=== PATIENT | female | born 1955 | race Caucasian/White ===

== ENCOUNTER 2016-11-06 21:02 | Inpatient (IN) | payer MEDICARE ==
[2016-11-06] MEDS ORDERED: BABY ASPIRIN 81 MG CHEW PO ONE (21:14)
[2016-11-06] MEDS ORDERED: Nitrostat 0.4 MG (ED) SL ONE ×2 (21:14→21:24)
[2016-11-06] MEDS ORDERED: Sodium Chloride 0.9% 1000 ML 1,000 ML IV SCH (21:15)
[2016-11-06] MEDS ORDERED: Zithromax 500 MG/ 250 ML NaCl Premix 250 ML IV ONE ×2 (21:16→21:24)
[2016-11-06] MEDS ORDERED: PROVENTIL 2.5 MG/3 ML NEB IH ONE ×2 (21:16→21:26)
[2016-11-06] MEDS ORDERED: ROCEPHIN 1 Gm-D5w 50 ml Bag** 50 ML IV ONE ×2 (21:16→21:25)
--- NOTE | 2016-11-06 21:23 | ERPHSYRPT ---
- History of Present Illness Time Seen by Provider: 11/06/16 21:08 Source: patient Exam Limitations: no limitations Patient Subjective Stated Complaint: PT COMPLAINS OF BILATERAL RIB PAIN STATES THAT SHE HAS ARTHRITIS AND HAS A HARD TIME BREATHING DUE TO THE PAIN SHE HAS WHEN SHE TAKES A DEEP BREATH STATES STARTED YESTERDAY STATES THAT SHE HAS HAD A COUGH BUT STATES THAT IS NORMAL FOR HER PT DENIES ANY TRAUMA TO RIBS TO CAUSE THE PAIN Triage Nursing Assessment: PT ALERT WARM AND DRY RESP EASY NON LABORED NO DISTRESS NOTED PT APPEARS TO BE IN PAIN WITH ANY MOVEMENT. Physician History: FOR THE PAST 3 DAYS PT HAS HAD A COUGH PRODUCTIVE OF YELLOW PHLEGM; FOR THE PAST 2 DAYS SHORTNESS OF AIR AND CONSTANT "HARD" BILATERAL RIB PAIN; TODAY VOMITING X3. LAST BM WAS THIS AM & WNL. PT DENIES FEVER, RASH, HEADACHE. Allergies/Adverse Reactions: Influenza Virus Vaccines Adverse Reaction (Intermediate, Verified 05/19/16 14:46 ) Vomiting Home Medications: Lisinopril 5 mg [Zestril 5 MG] 5 mg PO BID 02/03/16 [History] Tiotropium [place] [Spiriva] 18 mcg IH DAILY 02/03/16 [History] Clopidogrel Bisulfate [Plavix] 75 mg PO 11/06/16 [History] Diazepam 5 mg PO 11/06/16 [History] Escitalopram Oxalate [Lexapro] 11/06/16 [History] Meloxicam 15 mg [Meloxicam 15 MG] 15 mg PO 11/06/16 [History] Hx Tetanus, Diphtheria Vaccination/Date Given: Yes Hx Influenza Vaccination/Date Given: No Hx Pneumococcal Vaccination/Date Given: Yes Immunizations Up to Date: Yes - Review of Systems Constitutional: No Fever Respiratory: Cough, Dyspnea Cardiac: Other (BILATERAL RIB PAIN) Abdominal/Gastrointestinal: Vomiting Skin: No Rash Neurological: No Headache All Other Systems: Reviewed and Negative - Past Medical History Pertinent Past Medical History: Yes Cardiac History: Hypertension Respiratory History: COPD Musculoskeletal History: Arthritis Psycho-Social History: Depression - Past Surgical History Past Surgical History: Yes Cardiac: Cardiac Catheterization, Cardiac Stent Gastrointestinal: Appendectomy Female Surgical History: Section, Hysterectomy - Social History Smoking Status: Current some day smoker How long have you smoked: 25 YEARS Exposure to second hand smoke: Yes Alcohol Use: None Drug Use: none Patient Lives Alone: No Significant Family History: no pertinent family hx - Female History Hx Last Menstrual Period: N/A Hx Now: No - Nursing Vital Signs Nursing Vital Signs: Initial Vital Signs Temperature 97.3 F Temperature Source Oral Pulse Rate 83 Respiratory Rate 19 Blood Pressure [] 138/95 Pain Intensity 0 - Physical Exam General Appearance: alert Eye Exam: PERRL/EOMI, eyes nml inspection Ears, Nose, Throat Exam: TMs normal, moist mucous membranes, pharyngeal erythema (MILD) Neck Exam: normal inspection Respiratory Exam: chest tenderness (BILATERAL RIB TENDERNESS WITHOUT CREPITUS), airway intact, diminished breath sounds, wheezing (MINIMAL EXPIRATORY WHEEZING OVER POSTERIOR BASES.) Cardiovascular Exam: normal heart sounds Gastrointestinal/Abdomen Exam: soft, normal bowel sounds Back Exam: normal range of motion Extremity Exam: normal inspection, No pedal edema Neurologic Exam: alert, cooperative Skin Exam: warm, dry SpO2 Interpretation: normal SpO2: 96 Oxygen Delivery: Room Air - Course Nursing assessment & vital signs reviewed: Yes EKG Interpreted by Me: RATE (80), Sinus Rhythm, NORMAL AXIS, NORMAL INTERVALS - CT Exams Chest CT Interpretation: Tele-radiologist Report (THERE IS A SMALL AMOUNT OF FREE INTRAPERITONEAL FLUID PRESENT. 1.3 CM RIGHT MIDDLE LOBE PULMONARY NODULE. THIS HAS INCREASED IN SIZE SINCE 04/23/16. MALIDNANCY SHOULD BE EXCLUDED. DILATED SMALL BOWEL IN THE LEFT UPPER ABDOMEN. CLINICAL CORRELATION IS RECOMMENDED TO WHETHER THE PATIENT MIGHT BENEFIT FROM ABDOMEN AND PELVIS CT. NO PULMONARY EMBOLISM. NO ACUTE FRACTURE.) Abdomen/Pelvis CT Interpretation: Tele-radiologist Report (SCATTERED ASCITES. MODERATELY DILATED SMALL BOWEL LEFT UPPER QUADRANT WITHOUT GENERALIZED OBSTRUCTION. FINDINGS ARE NONSPECIFIC. NO FREE AIR.) Ordered Tests: Active Orders 24 hr Category Date Time Status EKG-ER Only STAT Care 11/06/16 21:14 Active IV Insertion STAT Care 11/06/16 21:14 Active Oxygen-ED Only NASAL CANNULA 2 lpm Care 11/06/16 21:14 Active Pulse Oximetry (ED) STAT Care 11/06/16 21:14 Active ABDOMEN AND PELVIS W/0 CONTRAS [CT] Stat Exams 11/07/16 01:44 Taken CHEST WITH CONTRAST [CT] Stat Exams 11/06/16 22:28 Taken AMYLASE Stat Lab 11/06/16 21:41 Completed BLOOD CULTURE Stat Lab 11/06/16 21:41 Received CBC W DIFF Stat Lab 11/06/16 21:41 Completed CMP Stat Lab 11/06/16 21:41 Completed CULTURE, THROAT Stat Lab 11/06/16 21:41 Received CULTURE,SPUTUM Stat Lab 11/06/16 21:17 Uncollected D-DIMER QUANTITATION Stat Lab 11/06/16 21:41 Completed LIPASE Stat Lab 11/06/16 21:41 Completed MAGNESIUM Stat Lab 11/06/16 21:41 Completed [place] Screen Stat Lab 11/06/16 21:41 Completed NT PRO BNP Stat Lab 11/06/16 21:41 Completed STREP SCREEN-BETA A Stat Lab 11/06/16 21:41 Completed TROPONIN Q3H Lab 11/06/16 21:41 Completed TROPONIN Q3H Lab 11/07/16 00:35 Completed TROPONIN Q3H Lab 11/07/16 03:15 Ordered TROPONIN Q3H Lab 11/07/16 06:15 Ordered TROPONIN Q3H Lab 11/07/16 09:15 Ordered UA W/ MICROSCOPIC Stat Lab 11/06/16 02:11 Completed Respiratory Nebulizer STAT RT 11/06/16 21:17 Completed Medication Summary Generic Name Dose Route Start Last Admin Trade Name Freq PRN Reason Stop Dose Admin Sodium Chloride 1,000 mls @ 100 mls/hr 11/06/16 21:15 11/06/16 21:28 Sodium Chloride 0.9% 1000 Ml IV 12/06/16 21:14 100 mls/hr .Q10H ANDREW Administration Dopamine HCl/Dextrose 250 mls @ 10.886 mls/hr 11/06/16 22:00 11/06/16 22:03 Dopamine 400 Mg/D5w 250ml Premix IV 12/06/16 21:59 10.886 mls/hr .[id number] ANDREW Administration Protocol 5 MCG/KG/MIN Discontinued Medications Generic Name Dose Route Start Last Admin Trade Name Freq PRN Reason Stop Dose Admin Albuterol Sulfate 2.5 mg 11/06/16 21:16 11/06/16 21:36 Proventil 2.5 Mg/3 Ml Neb IH 11/06/16 21:17 2.5 mg STAT ONE Administration Albuterol Sulfate Confirm 11/06/16 21:26 Proventil 2.5 Mg/3 Ml Neb Administered 11/06/16 21:27 Dose 2.5 mg IH .STK-MED ONE Aspirin 324 mg 11/06/16 21:14 11/06/16 21:26 Baby Aspirin 81 Mg Chew PO 11/06/16 21:15 324 mg STAT ONE Administration Aspirin Confirm 11/06/16 21:24 Baby Aspirin 81 Mg Chew Administered 11/06/16 21:25 Dose 324 mg .ROUTE .STK-MED ONE Hydromorphone HCl 0.5 mg 11/06/16 23:53 11/07/16 00:05 Dilaudid 1 Mg/Ml Injection IV 11/06/16 23:54 0.5 mg STAT ONE Administration Hydromorphone HCl Confirm 11/07/16 00:02 Dilaudid 1 Mg/Ml Injection Administered 11/07/16 00:03 Dose 1 mg .ROUTE .STK-MED ONE Azithromycin 250 mls @ 125 mls/hr 11/06/16 21:16 11/06/16 22:28 Zithromax 500 Mg/ 250 Ml Nacl Premix IV 11/06/16 23:15 125 mls/hr STAT ONE Administration Ceftriaxone Sodium/Dextrose 50 mls @ 100 mls/hr 11/06/16 21:16 11/06/16 21:30 Rocephin 1 Gm-D5w 50 Ml Bag IV 11/06/16 21:45 100 mls/hr STAT ONE Administration Azithromycin Confirm 11/06/16 21:24 Zithromax 500 Mg/ 250 Ml Nacl Premix Administered 11/06/16 21:25 Dose 250 mls @ ud IV .STK-MED ONE Sodium Chloride Confirm 11/06/16 21:25 Sodium Chloride 0.9% 1000 Ml Administered 11/06/16 21:26 Dose 1,000 mls @ ud .ROUTE .STK-MED ONE Ceftriaxone Sodium/Dextrose Confirm 11/06/16 21:25 Rocephin 1 Gm-D5w 50 Ml Bag Administered 11/06/16 21:26 Dose 50 mls @ ud IV .STK-MED ONE Sodium Chloride 1,000 mls @ 999 mls/hr 11/06/16 21:38 11/06/16 21:47 Sodium Chloride 0.9% 1000 Ml IV 11/06/16 22:38 999 mls/hr .Q1H1M STA Administration Dopamine HCl/Dextrose Confirm 11/06/16 21:54 Dopamine 400 Mg/D5w 250ml Premix Administered 11/06/16 21:55 Dose 250 mls @ ud IV .STK-MED ONE Ketorolac Tromethamine 30 mg 11/06/16 23:26 11/06/16 23:31 Toradol 30 Mg Injection IV 11/06/16 23:27 30 mg STAT ONE Administration Ketorolac Tromethamine Confirm 11/06/16 23:30 Toradol 30 Mg Injection Administered 11/06/16 23:31 Dose 30 mg .ROUTE .STK-MED ONE Nitroglycerin 0.4 mg 11/06/16 21:14 11/06/16 21:27 Nitrostat 0.4 Mg (Ed) SL 11/06/16 21:15 0.4 mg STAT ONE Administration Nitroglycerin Confirm 11/06/16 21:24 Nitrostat 0.4 Mg (Ed) Administered 11/06/16 21:25 Dose 0.4 mg SL .STK-MED ONE Ondansetron HCl 4 mg 11/06/16 22:10 11/06/16 22:22 Zofran 4 Mg/2 Ml Vial IV 11/06/16 22:11 4 mg STAT ONE Administration Ondansetron HCl Confirm 11/06/16 22:10 Zofran 4 Mg/2 Ml Vial Administered 11/06/16 22:11 Dose 4 mg .ROUTE .STK-MED ONE Promethazine HCl 6.25 mg 11/06/16 23:53 11/07/16 00:05 Phenergan 25 Mg Inj IV 11/06/16 23:54 6.25 mg STAT ONE Administration Promethazine HCl Confirm 11/07/16 00:02 Phenergan 25 Mg Inj Administered 11/07/16 00:03 Dose 25 mg .ROUTE .STK-MED ONE Lab/Rad Data: Laboratory Result Diagrams 11/06/16 21:41 11/06/16 21:41 Laboratory Results 11/07/16 11/06/16 11/06/16 Range/Units 00:35 21:41 21:41 WBC (4.0-10.5) K/mm3 RBC (4.1-5.4) M/mm3 Hgb (12.0-16.0) gm/dl Hct (35-47) % MCV (78-100) fl MCH (26-32) pg MCHC (32-36) g/dl RDW (11.5-14.0) % Plt Count (150-450) K/mm3 MPV (6-9.5) fl Gran % (36.0-66.0) % Lymphocytes % (24.0-44.0) % Monocytes % (0.0-12.0) % Eosinophils % (0.00-5.0) % Basophils % (0.0-0.4) % Basophils # (0-0.4) D-Dimer (0.00-0.49) mg/L Sodium (136-145) mEq/L Potassium (3.5-5.1) mEq/L Chloride (98-107) mEq/L Carbon Dioxide (21-32) mEq/L Anion Gap (5-15) MEQ/L BUN (9-20) mg/dL Creatinine (0.55-1.30) mg/dl Estimated GFR ML/MIN Glucose (70-110) MG/DL Calcium (8.5-10.1) mg/dL Magnesium (1.8-2.4) mg/dL Total Bilirubin (0.2-1.0) mg/dL AST (15-37) U/L ALT (12-78) U/L Alkaline Phosphatase (46-116) U/L Troponin I < 0.017 (0.000-0.056) ng/ml NT-Pro-B Natriuret Pep (0-125) pg/ml Serum Total Protein (6.4-8.2) gm/dL Albumin (3.4-5.0) g/dL Amylase (25-115) U/L Lipase (73-393) U/L Ur Collection Type Urine Color (YELLOW) Urine Appearance (CLEAR) Urine pH (5-6) Ur Specific [place] (1.005-1.025) Urine Protein (Negative) Urine Glucose (UA) (NEGATIVE) mg/dL Urine Ketones (NEGATIVE) Urine Nitrite (NEGATIVE) Urine Bilirubin (NEGATIVE) Urine Urobilinogen (0-1) mg/dL Urine WBC (Auto) (NEGATIVE) Urine RBC (Auto) (0-5) Brain/ul Urine Microscopic RBC (0-2) /HPF Urine Microscopic WBC (0-5) /HPF Ur Epithelial Cells (FEW) /HPF Urine Bacteria (NEGATIVE) /HPF Monoscreen NEGATIVE (Negative) Streptococcus Screen (Negative) Resp Infection Panel NEGATIVE (Negative) Specimen Received 11/06/16 11/06/16 11/06/16 Range/Units 21:41 21:41 21:41 WBC (4.0-10.5) K/mm3 RBC (4.1-5.4) M/mm3 Hgb (12.0-16.0) gm/dl Hct (35-47) % MCV (78-100) fl MCH (26-32) pg MCHC (32-36) g/dl RDW (11.5-14.0) % Plt Count (150-450) K/mm3 MPV (6-9.5) fl Gran % (36.0-66.0) % Lymphocytes % (24.0-44.0) % Monocytes % (0.0-12.0) % Eosinophils % (0.00-5.0) % Basophils % (0.0-0.4) % Basophils # (0-0.4) D-Dimer 0.838 H* (0.00-0.49) mg/L Sodium (136-145) mEq/L Potassium (3.5-5.1) mEq/L Chloride (98-107) mEq/L Carbon Dioxide (21-32) mEq/L Anion Gap (5-15) MEQ/L BUN (9-20) mg/dL Creatinine (0.55-1.30) mg/dl Estimated GFR ML/MIN Glucose (70-110) MG/DL Calcium (8.5-10.1) mg/dL Magnesium (1.8-2.4) mg/dL Total Bilirubin (0.2-1.0) mg/dL AST (15-37) U/L ALT (12-78) U/L Alkaline Phosphatase (46-116) U/L Troponin I < 0.017 (0.000-0.056) ng/ml NT-Pro-B Natriuret Pep (0-125) pg/ml Serum Total Protein (6.4-8.2) gm/dL Albumin (3.4-5.0) g/dL Amylase (25-115) U/L Lipase (73-393) U/L Ur Collection Type Urine Color (YELLOW) Urine Appearance (CLEAR) Urine pH (5-6) Ur Specific [place] (1.005-1.025) Urine Protein (Negative) Urine Glucose (UA) (NEGATIVE) mg/dL Urine Ketones (NEGATIVE) Urine Nitrite (NEGATIVE) Urine Bilirubin (NEGATIVE) Urine Urobilinogen (0-1) mg/dL Urine WBC (Auto) (NEGATIVE) Urine RBC (Auto) (0-5) Brain/ul Urine Microscopic RBC (0-2) /HPF Urine Microscopic WBC (0-5) /HPF Ur Epithelial Cells (FEW) /HPF Urine Bacteria (NEGATIVE) /HPF Monoscreen (Negative) Streptococcus Screen NEGATIVE (Negative) Resp Infection Panel (Negative) Specimen Received 11/06/16 11/06/16 11/06/16 Range/Units 21:41 21:41 02:11 WBC 15.2 H (4.0-10.5) K/mm3 RBC 4.54 (4.1-5.4) M/mm3 Hgb 13.0 (12.0-16.0) gm/dl Hct 39.8 (35-47) % MCV 87.7 (78-100) fl MCH 28.6 (26-32) pg MCHC 32.7 (32-36) g/dl RDW 14.1 H (11.5-14.0) % Plt Count 470 H (150-450) K/mm3 MPV 8.9 (6-9.5) fl Gran % 86.0 H (36.0-66.0) % Lymphocytes % 9.6 L (24.0-44.0) % Monocytes % 3.8 (0.0-12.0) % Eosinophils % 0.5 (0.00-5.0) % Basophils % 0.1 (0.0-0.4) % Basophils # 0.02 (0-0.4) D-Dimer (0.00-0.49) mg/L Sodium 130 L (136-145) mEq/L Potassium 4.2 (3.5-5.1) mEq/L Chloride 95 L (98-107) mEq/L Carbon Dioxide 26.6 (21-32) mEq/L Anion Gap 12.4 (5-15) MEQ/L BUN 15 (9-20) mg/dL Creatinine 0.88 (0.55-1.30) mg/dl Estimated GFR > 60 ML/MIN Glucose 144 H (70-110) MG/DL Calcium 9.7 (8.5-10.1) mg/dL Magnesium 1.8 (1.8-2.4) mg/dL Total Bilirubin 0.3 (0.2-1.0) mg/dL AST 9 L (15-37) U/L ALT 9 L (12-78) U/L Alkaline Phosphatase 152 H (46-116) U/L Troponin I (0.000-0.056) ng/ml NT-Pro-B Natriuret Pep 209 H (0-125) pg/ml Serum Total Protein 7.6 (6.4-8.2) gm/dL Albumin 3.9 (3.4-5.0) g/dL Amylase 45 (25-115) U/L Lipase 171 (73-393) U/L Ur Collection Type VOID Urine Color YELLOW (YELLOW) Urine Appearance CLEAR (CLEAR) Urine pH 5.5 (5-6) Ur Specific [place] 1.010 (1.005-1.025) Urine Protein NEGATIVE (Negative) Urine Glucose (UA) NEGATIVE (NEGATIVE) mg/dL Urine Ketones NEGATIVE (NEGATIVE) Urine Nitrite NEGATIVE (NEGATIVE) Urine Bilirubin NEGATIVE (NEGATIVE) Urine Urobilinogen 0.2 (0-1) mg/dL Urine WBC (Auto) NEGATIVE (NEGATIVE) Urine RBC (Auto) TRACE-INTACT (0-5) Brain/ul Urine Microscopic RBC 2-5 (0-2) /HPF Urine Microscopic WBC 0-2 (0-5) /HPF Ur Epithelial Cells FEW (FEW) /HPF Urine Bacteria RARE (NEGATIVE) /HPF Monoscreen (Negative) Streptococcus Screen (Negative) Resp Infection Panel (Negative) Specimen Received 11/07/16209 - Progress Discussed with : Ethan ([id number] - OBS) - Departure Time of Disposition: 03:21 Departure Disposition: Observation Clinical Impression: BRONCHITIS, PHARYNGITIS, CHEST PAIN, HTN, COPD, ARTHRITIS, DEPRESSION, RML PULMONARY NODULE Condition: Fair Critical Care Time: Yes Critical Care Time(excluding separately billable procedures): 30-74 minutes
[2016-11-06] MEDS ORDERED: BABY ASPIRIN 81 MG CHEW ONE (21:24)
[2016-11-06] MEDS ORDERED: Sodium Chloride 0.9% 1000 ML 1,000 ML ONE (21:25)
[2016-11-06] MEDS ORDERED: Sodium Chloride 0.9% 1000 ML 1,000 ML IV STA (21:38)
[2016-11-06 21:47] LABS: BASOPHIL % 0.1 % (0.0-0.4); Eosinophil % 0.5 % (0.00-5.0); Lymphocytes % 9.6 % (24.0-44.0); Mean Cell Volume 87.7 fl (78-100); Mean Corpuscular Hemoglobin 28.6 pg (26-32); Mean Platelet Volume 8.9 fl (6-9.5); Monocytes % 3.8 % (0.0-12.0); Platelet Count 470 K/mm3 (150-450); Red Blood Count 4.54 M/mm3 (4.1-5.4); Red Cell Distribution Width 14.1 % (11.5-14.0); White Blood Count 15.2 K/mm3 (4.0-10.5)
[2016-11-06] MEDS ORDERED: Dopamine 400 MG/D5W 250ML PREMIX 250 ML IV ONE (21:54)
[2016-11-06] MEDS ORDERED: Dopamine 400 MG/D5W 250ML PREMIX 250 ML IV SCH (22:00)
[2016-11-06] MEDS ORDERED: Zofran 4 MG/2 ML VIAL IV ONE (22:10)
[2016-11-06] MEDS ORDERED: Zofran 4 MG/2 ML VIAL ONE (22:10)
[2016-11-06 22:16] LABS: ALBUMIN 3.9 g/dL (3.4-5.0); ALKALINE PHOSPHATASE 152 U/L (46-116); ANION GAP 12.4 MEQ/L (5-15); BILIRUBIN,TOTAL 0.3 mg/dL (0.2-1.0); BLOOD UREA NITROGEN 15 mg/dL (9-20); CHLORIDE 95 mEq/L (98-107); Carbon Dioxide 26.6 mEq/L (21-32); Glucose 144 MG/DL (70-110); LIPASE 171 U/L (73-393); MAGNESIUM 1.8 mg/dL (1.8-2.4); Potassium 4.2 mEq/L (3.5-5.1); SGOT/AST 9 U/L (15-37); SGPT/ALT 9 U/L (12-78); SODIUM 130 mEq/L (136-145); Total Protein 7.6 gm/dL (6.4-8.2)
[2016-11-06] MEDS ORDERED: TORAdol 30 mg Injection IV ONE (23:26)
[2016-11-06] MEDS ORDERED: TORAdol 30 mg Injection ONE (23:30)
[2016-11-06] MEDS ORDERED: Phenergan 25 MG INJ IV ONE (23:53)
[2016-11-06] MEDS ORDERED: DILAUDID 1 MG/ML INJECTION IV ONE (23:53)
[2016-11-07] MEDS ORDERED: Phenergan 25 MG INJ ONE (00:02)
[2016-11-07] MEDS ORDERED: DILAUDID 1 MG/ML INJECTION ONE (00:02)
[2016-11-07 02:24] LABS: Bacteria RARE /HPF (NEGATIVE); COMPLETE URINE MICROSCOPIC? YES; Collection Type VOID; Epithelial Cells FEW /HPF (FEW); Ph 5.5 (5-6); WBC 0-2 /HPF (0-5)
[2016-11-07] MEDS ORDERED: Sodium Chloride 0.9% 1000 ML 1,000 ML IV SCH (03:50)
[2016-11-07] MEDS ORDERED: TYLENOL 325 MG PO PRN (03:50)
[2016-11-07] MEDS ORDERED: Robitussin-Dm Syrup PO PRN (03:50)
[2016-11-07] MEDS ORDERED: Phenergan 25 MG INJ IV PRN (03:50)
[2016-11-07] MEDS ORDERED: PROVENTIL 2.5 MG/3 ML NEB IH PRN (03:50)
[2016-11-07] MEDS: DILAUDID 2 MG INJECTION IV PRN ×2 (04:24→08:37)
[2016-11-07] MEDS: Spiriva 18 Mcg/Cap Inhaler IH SCH (06:54)
[2016-11-07] MEDS ORDERED: PROVENTIL 2.5 MG/3 ML NEB IH SCH (07:00)
[2016-11-07] MEDS ORDERED: DUONEB 0.5-3 MG/3 ml Neb IH SCH (07:00)
[2016-11-07] MEDS ORDERED: Zemuron 100 MG/10 ML IJ ONE (08:00)
[2016-11-07] MEDS ORDERED: DILAUDID 2 MG INJECTION IV ONE (08:00)
[2016-11-07] MEDS ORDERED: DIPRIVAN 200 MG/20 ML IV ONE (08:00)
[2016-11-07] MEDS ORDERED: SUBLIMAZE 100 MCG/2 ML IV ONE (08:00)
[2016-11-07] MEDS ORDERED: BRIDION 200MG/2ML IV ONE (08:00)
[2016-11-07] MEDS ORDERED: Decadron 4 MG INJ IV ONE (08:00)
[2016-11-07] MEDS ORDERED: Zofran 4 MG/2 ML VIAL IV ONE (08:00)
[2016-11-07] MEDS ORDERED: Quelicin Fliptop 200 MG/10 ML IJ ONE (08:00)
--- NOTE | 2016-11-07 08:31 | PCM.HP ---
History of Present Illness - Chief Complaint Chief Complaint: Bronchitis, COPD History of Present Illness: is a 61 year old female who presented to the ER with 3-4 days history of vanesa rib pain, it was sharp and stabbing and severe. she has copd, has had some nonproductive cough, no fever. 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 sees Dr Kothari as her primary care. - Review of Systems Constitutional: No Fever, No Chills Respiratory: Cough, No Short Of Breath Cardiac: Chest Pain Abdominal/Gastrointestinal: Nausea, Vomiting Skin: No Rash All Other Systems: Reviewed and Negative Medications & Allergies Home Medications: Home Medication List Lisinopril 5 mg [Zestril 5 MG] 5 mg PO BID 02/03/16 [History Confirmed ] Tiotropium [place] [Spiriva] 18 mcg IH DAILY 02/03/16 [History Confirmed ] Clopidogrel Bisulfate [Plavix] 75 mg PO DAILY 11/06/16 [History Confirmed ] Diazepam 5 mg PO HS PRN PRN 11/06/16 [History Confirmed 11/07/16] Escitalopram Oxalate [Lexapro] 10 mg PO DAILY 11/06/16 [History Confirmed ] Meloxicam 15 mg [Meloxicam 15 MG] 15 mg PO DAILY 11/06/16 [History Confirmed ] Allergies/Adverse Reactions: Allergies Allergy/AdvReac Type Severity Reaction Status Date / Time Influenza Virus Vaccines AdvReac Intermediate Vomiting Verified 05/19/16 14:46 - Past Medical History Past Medical History: Yes Neurological History: No Pertinent History Cardiac History: Hypertension, Myocardial Infarction (SC) Respiratory History: COPD Musculoskelatal History: Arthritis GI Medical History: No Pertinent History History: No Pertinent History Pyscho-Social History: Depression Reproductive Disorders: No Pertinent History - Female History Hx Last Menstrual Period: N/A Are you now?: No - Past Surgical History Past Surgical History: Yes Neuro Surgical History: No Pertinent History Cardiac History: Cardiac Catheterization, Cardiac Stent Respiratory Surgery: No Pertinent History GI Surgical History: Appendectomy Genitourinary Surgical Hx: No Pertinent History Musculskeletal Surgical Hx: No Pertinent History Female Surgical History: Section, Hysterectomy - Social History Smoking Status: Current every day smoker How long have you smoked: 25 yrs Exposure to second hand smoke: Yes Alcohol: None Drug Use: none Significant Family History: no pertinent family hx - Physical Exam Vital Signs: Vital Signs - 24 hr Temp Pulse Resp BP Pulse Ox 11/07/16 07:55 16 11/07/16 07:37 98.1 F 105 H 16 110/61 90 L 11/07/16 06:58 103 H 18 96 11/07/16 04:10 107 H 20 96 11/07/16 04:00 97.8 F 109 H 22 133/74 94 L 11/07/16 03:21 96 11/07/16 02:16 83 19 138/95 93 L 11/07/16 01:31 85 18 127/76 96 11/07/16 00:34 87 22 115/76 99 11/06/16 23:33 102 H 23 111/60 97 11/06/16 22:30 97 H 22 100/65 92 L 11/06/16 22:21 98 H 22 124/70 96 11/06/16 22:02 81 21 95/54 96 11/06/16 21:48 90 21 86/57 98 11/06/16 21:46 79 23 77/40 98 11/06/16 21:40 90 22 74/56 98 11/06/16 21:36 101 H 21 97 11/06/16 21:20 96 11/06/16 21:06 97.3 F 91 H 18 107/76 96 Oxygen-Last 24 hours O2 Percentage 2 Liters = 28% O2 Percentage 2 Liters = 28% O2 Percentage 3 Liters = 32% O2 Percentage 2 Liters = 28% O2 Percentage 2 Liters = 28% O2 Percentage 2 Liters = 28% O2 Percentage 2 Liters = 28% O2 Percentage 2 Liters = 28% O2 Percentage 2 Liters = 28% O2 Percentage 2 Liters = 28% O2 Percentage 6 Liters = 44% General Appearance: no apparent distress, alert Neurologic Exam: alert, oriented x 3, cooperative, normal mood/affect, nml cerebellar function, nml station & gait, sensation nml, No motor deficits Respiratory Exam: chest tenderness, diminished breath sounds, prolonged expirations, wheezing Cardiovascular Exam: regular rate/rhythm, normal heart sounds, normal peripheral pulses Gastrointestinal/Abdomen Exam: soft, normal bowel sounds, No tenderness, No mass Extremity Exam: normal inspection, normal range of motion, pelvis stable Skin Exam: normal color Results - Labs Lab/Micro Results: Lab Results-Last 24 Hours 11/07/16 Range/Units 03:53 Troponin I < 0.017 (0.000-0.056) ng/ml - Other Procedures and Tests Respiratory Therapy 11/07/16 06:39 Respiratory Nebulizer PRN 11/07/16 07:00 Respiratory Nebulizer BID 11/07/16 10:00 Respiratory MDI DAILY Assessment/Plan (1) COPD exacerbation Current Visit: Yes Status: Acute Assessment & Plan: will add solumedrol, patient appears to have exacerbation of copd with poor air exchange at this time. pain seems pleuritic Code(s): J44.1 - CHRONIC OBSTRUCTIVE PULMONARY DISEASE W (ACUTE) EXACERBATION (2) Chest pain Current Visit: Yes Status: Acute Assessment & Plan: SC ruled out, noncardiac. seems pleuritic, will add solumedrol for copd and hope to help pleuritic pain with this as well Code(s): R07.9 - CHEST PAIN, UNSPECIFIED (3) Hypertension Current Visit: Yes Status: Acute Assessment & Plan: resume home meds lisinopril and continue plavix Code(s): I10 - ESSENTIAL (PRIMARY) HYPERTENSION
--- NOTE | 2016-11-07 08:50 | XRAY ---
Indication: Bilateral chest pain, short of breath, and elevated d-dimer. History of PE and COPD. Multiple contiguous axial images obtained through the chest using 80 cc Isovue 370 contrast and PE protocol. Comparison: April 23, 2016 There is good opacification of the pulmonary arteries. Mild respiration artifact limits evaluation of the more distal pulmonary arteries. Again no filling defect/pulmonary embolus. Heart is not enlarged. Aorta again minimally calcified without aneurysm/dissection. There remains a few mediastinal and hilar calcified nodes. No pathologic mediastinal/hilar lymphadenopathy. New small hiatal hernia. Examination of the lung parenchyma again demonstrates minimal emphysema and inferior right upper lobe fibrosis/scarring. Previous irregular subcentimeter noncalcified nodule in the inferior right upper lobe has increased in size today measuring 1.3 cm concerning for malignancy. Stable tiny 2-3 mm subpleural noncalcified nodule posterior laterally in the inferior right upper lobe (image 24, series 4). No new pulmonary mass/nodule, infiltrate, or effusion. Bony thorax intact again with T10/T11 Schmorl nodes. Upper abdomen demonstrates new free fluid and free air. CT abdomen/pelvis reported separately. Impression: 1. Again negative for pulmonary embolus. 2. Interval enlarging irregular noncalcified nodule in the right upper lobe concerning for malignancy. PET CT may yield further information. 3. Abdomen demonstrates new free fluid/air. 4. New small hiatal hernia. 4. Stable pulmonary emphysema and right upper lobe subpleural micronodule. Comment: Preliminary interpretation was made by [facility]. Abdomen free air not reported. I gave telephone report to Dr. Mcbride in the ER at 0850 on 11/07/16. CT DI 11.14
--- NOTE | 2016-11-07 09:15 | XRAY ---
Indication: Abdomen pain and vomiting. Abnormal free fluid/free air and dilated small bowel loops on CT chest study of the same day. Multiple contiguous axial images obtained through the abdomen and pelvis without contrast. Comparison: None CT chest reported separately. There is small abdominal and pelvic free fluid. There is also small collection of free air anterior to the liver and tiny air bubbles interposed between the stomach and liver. I question possible perforated stomach as a cause. Bowel loops are mildly distended presumed reactive ileus. Previous reported appendectomy and hysterectomy. There is contrast in the system from CT PE study performed earlier in the day. Remaining liver, pancreas, spleen, adrenal glands, kidneys, ureters, and bladder appear unremarkable. Mild aortoiliac calcifications without AAA. Osseous structures intact. Impression: Abdominal/pelvic free fluid and abdominal free air as detailed. Query perforated stomach secondary to gastric ulcer. Probable reactive ileus. Comment: Preliminary interpretation was made by [facility]. Free air not reported. I gave telephone report to Dr. Mcbride in the ER at 0850 on 11/07/16.
[2016-11-07] MEDS ORDERED: DILAUDID 2 MG INJECTION IV PRN (09:29)
[2016-11-07] MEDS ORDERED: Valium 5 MG PO PRN (09:45)
[2016-11-07] MEDS ORDERED: PLAVIX 75 MG Tablet PO SCH (10:00)
[2016-11-07] MEDS ORDERED: Lactated Ringers 2,000 ML IV ONE (10:11)
[2016-11-07] MEDS: Lexapro 10 MG PO SCH (10:59)
[2016-11-07] MEDS: Zestril 5 MG PO SCH ×2 (10:59→21:27)
[2016-11-07] MEDS ORDERED: MEFOXIN 2 GM PREMIX** 50 ML IV SCH (11:00)
[2016-11-07] MEDS ORDERED: Lactated Ringers 1,000 ML IV SCH (11:00)
[2016-11-07] MEDS ORDERED: Pepcid 20 MG VIAL IV SCH (11:00)
[2016-11-07] MEDS: solu-MEDROL 125 MG IV SCH ×3 (11:01→21:21)
[2016-11-07] MEDS ORDERED: EPIDURAL - ROPIVICAINE0.5%/SUFENTA 250 MCG/NS EPIDURAL PRN (11:06)
[2016-11-07] MEDS ORDERED: DILAUDID 2 MG INJECTION ONE (12:53)
[2016-11-07] MEDS ORDERED: SUBLIMAZE 100 MCG/2 ML ONE (12:53)
[2016-11-07 13:05] LABS: BASOPHIL % 0.1 % (0.0-0.4); Granulocytes % 88.9 % (36.0-66.0); Mean Cell Volume 89.9 fl (78-100); Mean Platelet Volume 8.9 fl (6-9.5); Platelet Count 393 K/mm3 (150-450); Red Blood Count 3.87 M/mm3 (4.1-5.4); White Blood Count 12.2 K/mm3 (4.0-10.5)
[2016-11-07 13:06] LABS: Mean Corpuscular Hemoglobin 28.6 pg (26-32)
[2016-11-07 13:25] LABS: ALBUMIN 2.8 g/dL (3.4-5.0); ALKALINE PHOSPHATASE 94 U/L (46-116); ANION GAP 13.2 MEQ/L (5-15); BILIRUBIN,TOTAL 0.4 mg/dL (0.2-1.0); BLOOD UREA NITROGEN 13 mg/dL (9-20); CHLORIDE 102 mEq/L (98-107); Carbon Dioxide 22.2 mEq/L (21-32); Glucose 127 MG/DL (70-110); Potassium 4.7 mEq/L (3.5-5.1); SGOT/AST 39 U/L (15-37); SGPT/ALT 30 U/L (12-78); SODIUM 133 mEq/L (136-145)
[2016-11-07 13:26] LABS: TROPONIN < 0.017 ng/ml (0.000-0.056)
[2016-11-07] MEDS: DUONEB 0.5-3 MG/3 ml Neb IH SCH ×2 (14:12→17:52)
[2016-11-07] MEDS: Morphine PCA 1 MG/ML 30 ML IV PRN (14:45)
[2016-11-07] MEDS ORDERED: FEVERALL 650 MG RC PRN (14:49)
[2016-11-07] MEDS: PROTONIX 40 MG IV*** 80 MG in Sodium Chloride 0.9% 500 ML 500 ML IV SCH (15:18)
--- NOTE | 2016-11-07 15:22 | OP ---
SURGERY DATE/TIME: 11/07/2016 1122 PREOPERATIVE DIAGNOSIS: Acute abdomen with free air. POSTOPERATIVE DIAGNOSIS: Acute perforated duodenal ulcer with 2 liter intra-abdominal fluid collection. PROCEDURES: 1) Colton patch. 2) Evacuation of abdominal abscess. SURGEON: Alon Somers M.D. ANESTHESIA: General. COMPLICATIONS: None. CONDITION: Stable. ESTIMATED BLOOD LOSS: None. DRAINS: One. INDICATION: A patient with acute abdomen. DESCRIPTION OF PROCEDURE: Taken to surgery. General anesthetic. Routine prep and drape. Upper midline incision. There was a band of omentum stuck against the entire lower midline this was left intact. There was an 8 mm perforated anterior duodenal ulcer full thickness. Initial suctioning of the fluid about 2 liters. A Colton patch. The omentum was able to be mobilized so that it came up. Three sutures were placed in Colton-type fashion and buttressed over omental tongue. Excellent patch was present. The field was generously irrigated with normal saline in all four quadrants in return superhepatic, supersplenic, infrahepatic, infrahepatic on the left, lesser sac, greater abdomen, greater pelvis. Fluid all returned clear. 10 JAN was brought in from the right and stayed under the liver over top of the ulcer area. Anterior abdominal wall closed with looped 0 PDS. Subcutaneous tissue irrigated. Skin closed with merritt. Damion were applied. The patient tolerated the procedure satisfactorily. Drain secured. Findings discussed with the family in the waiting room.
[2016-11-07] MEDS: MEFOXIN 1 Gm/ D5W 50 Ml** 50 ML IV SCH (17:11)
[2016-11-07] MEDS: D5W/0.45NS W/ 20mEq KCl 1000 ML 1,000 ML IV SCH (17:11)
[2016-11-07] MEDS: Valium 5 MG PO SCH (21:19)
[2016-11-07] MEDS: Zithromax 500 MG/ 250 ML NaCl Premix 250 ML IV SCH (21:25)
[2016-11-07] MEDS ORDERED: ROCEPHIN 1 Gm-D5w 50 ml Bag** 50 ML IV SCH (22:00)
[2016-11-08] MEDS: DUONEB 0.5-3 MG/3 ml Neb IH SCH ×4 (00:19→17:22)
[2016-11-08] MEDS: MEFOXIN 1 Gm/ D5W 50 Ml** 50 ML IV SCH ×4 (00:24→19:06)
[2016-11-08] MEDS ORDERED: Sodium Chloride 0.9% 500 ML 500 ML IV ONE (01:04)
[2016-11-08] MEDS: PROTONIX 40 MG IV*** 80 MG in Sodium Chloride 0.9% 500 ML 500 ML IV SCH ×3 (01:08→23:34)
[2016-11-08] MEDS: Morphine PCA 1 MG/ML 30 ML IV PRN ×2 (05:03→15:07)
[2016-11-08] MEDS: solu-MEDROL 125 MG IV SCH (05:18)
[2016-11-08] MEDS: Spiriva 18 Mcg/Cap Inhaler IH SCH (05:23)
[2016-11-08 05:53] LABS: Mean Cell Volume 91.9 fl (78-100); Mean Corpuscular Hemoglobin 28.5 pg (26-32); Mean Platelet Volume 9.5 fl (6-9.5); Platelet Count 354 K/mm3 (150-450); Red Blood Count 3.33 M/mm3 (4.1-5.4); Red Cell Distribution Width 14.4 % (11.5-14.0)
[2016-11-08 06:14] LABS: ALBUMIN 2.5 g/dL (3.4-5.0); ANION GAP 11.3 MEQ/L (5-15); BILIRUBIN,TOTAL 0.3 mg/dL (0.2-1.0); Carbon Dioxide 24.8 mEq/L (21-32); Potassium 4.8 mEq/L (3.5-5.1)
[2016-11-08 07:30] LABS: ANISOCYTOSIS 1+; BAND 42 % (0.0-2.0); Metamyelocyte 1 %; Platelet Estimate NORMAL (NORMAL); Poikilocytosis 1+; Total Cells Counted 100
[2016-11-08] MEDS: D5W/0.45NS W/ 20mEq KCl 1000 ML 1,000 ML IV SCH ×2 (08:03→20:26)
--- NOTE | 2016-11-08 08:22 | PCM.NOTE ---
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 CT showed free air in abdomen after read by radiology yesterday morning so patient went to surgery and found perforated ulcer. she has NG in place Objective Exam General Appearance: no apparent distress Respiratory Exam: prolonged expirations, wheezing Cardiovascular Exam: regular rate/rhythm, normal heart sounds Gastrointestinal/Abdomen Exam: soft, other (JAN with serous fluid, NG to LIS), No tenderness, No mass OBJECTIVE DATA Vital Signs: Vital Signs - 24 hr Temp Pulse Resp BP BP Pulse Ox 11/08/16 06:57 97.5 F 98 H 20 98/56 92 L 11/08/16 05:24 95 H 20 93 L 11/08/16 05:03 93 L 11/08/16 05:00 93 L 11/08/16 03:00 97.8 F 95 H 18 105/66 93 L 11/08/16 02:00 93 L 11/08/16 00:19 99 H 18 92 L 11/07/16 23:00 97.8 F 104 H 17 111/69 96 11/07/16 22:29 91 L 11/07/16 19:00 97.5 F 93 H 17 113/67 94 L 11/07/16 17:57 90 L 11/07/16 17:52 97 H 16 96 11/07/16 16:27 95 11/07/16 16:00 16 11/07/16 15:34 82 16 108/66 92 L 11/07/16 15:27 93 L 11/07/16 15:05 97.8 F 101 H 18 109/67 91 L 11/07/16 14:45 90 L 11/07/16 14:30 98.1 F 106 H 17 110/70 91 L 11/07/16 14:15 109 H 90 L 11/07/16 13:58 97.5 F 110 H 16 108/63 89 L 11/07/16 12:00 97.9 F 101 H 17 90/60 93 L 11/07/16 10:33 97.9 F 101 H 16 90/60 93 L Oxygen-Last 24 hours O2 Percentage 5 Liters = 40% O2 Percentage 3 Liters = 32% O2 Percentage 5 Liters = 40% O2 Percentage 4 Liters = 36% O2 Percentage 6 Liters = 44% O2 Percentage 5 Liters = 40% O2 Percentage 5 Liters = 40% O2 Percentage 5 Liters = 40% O2 Percentage 2 Liters = 28% Pain Assessment - Last Documented Pain Intensity 6 Pain Scale Used 0-10 Pain Scale Intake and Output: Intake & Output 11/05/16 11/06/16 11/07/16 11/08/16 11:59 11:59 11:59 11:59 Intake Total 3248 Output Total 2740 Balance 508 Weight 62.051 kg 70.851 kg Lab Results: Lab Results-Last 24 Hours 11/07/16 11/07/16 11/08/16 Range/Units 13:01 13:01 05:20 WBC 12.2 H 15.0 H (4.0-10.5) K/mm3 RBC 3.87 L 3.33 L (4.1-5.4) M/mm3 Hgb 11.1 L 9.5 L (12.0-16.0) gm/dl Hct 34.8 L 30.6 L (35-47) % MCV 89.9 91.9 (78-100) fl MCH 28.6 28.5 (26-32) pg MCHC 31.9 L 31.0 L (32-36) g/dl RDW 14.0 14.4 H (11.5-14.0) % Plt Count 393 354 (150-450) K/mm3 MPV 8.9 9.5 (6-9.5) fl Gran % 88.9 H (36.0-66.0) % Lymphocytes % 6.0 L (24.0-44.0) % Monocytes % 5.0 (0.0-12.0) % Eosinophils % 0.0 (0.00-5.0) % Basophils % 0.1 (0.0-0.4) % Segmented Neutrophils 52 (36.0-66.0) % Band Neutrophils 42 H (0.0-2.0) % Lymphocytes (Manual) 3 L (24-44) % Monocytes (Manual) 2 (0.0-12.0) % Basophils # 0.01 (0-0.4) Metamyelocytes 1 % Differential Comment ABNORMAL Platelet Estimate NORMAL (NORMAL) Poikilocytosis 1+ Anisocytosis 1+ Sodium 133 L (136-145) mEq/L Potassium 4.7 (3.5-5.1) mEq/L Chloride 102 (98-107) mEq/L Carbon Dioxide 22.2 (21-32) mEq/L Anion Gap 13.2 (5-15) MEQ/L BUN 13 (9-20) mg/dL Creatinine 1.03 (0.55-1.30) mg/dl Estimated GFR 58 ML/MIN Glucose 127 H (70-110) MG/DL Calcium 8.7 (8.5-10.1) mg/dL Total Bilirubin 0.4 (0.2-1.0) mg/dL AST 39 H (15-37) U/L ALT 30 (12-78) U/L Alkaline Phosphatase 94 (46-116) U/L Troponin I < 0.017 (0.000-0.056) ng/ml Serum Total Protein 6.0 L (6.4-8.2) gm/dL Albumin 2.8 L (3.4-5.0) g/dL 11/08/16 Range/Units 05:20 WBC (4.0-10.5) K/mm3 RBC (4.1-5.4) M/mm3 Hgb (12.0-16.0) gm/dl Hct (35-47) % MCV (78-100) fl MCH (26-32) pg MCHC (32-36) g/dl RDW (11.5-14.0) % Plt Count (150-450) K/mm3 MPV (6-9.5) fl Gran % (36.0-66.0) % Lymphocytes % (24.0-44.0) % Monocytes % (0.0-12.0) % Eosinophils % (0.00-5.0) % Basophils % (0.0-0.4) % Segmented Neutrophils (36.0-66.0) % Band Neutrophils (0.0-2.0) % Lymphocytes (Manual) (24-44) % Monocytes (Manual) (0.0-12.0) % Basophils # (0-0.4) Metamyelocytes % Differential Comment Platelet Estimate (NORMAL) Poikilocytosis Anisocytosis Sodium 135 L (136-145) mEq/L Potassium 4.8 (3.5-5.1) mEq/L Chloride 104 (98-107) mEq/L Carbon Dioxide 24.8 (21-32) mEq/L Anion Gap 11.3 (5-15) MEQ/L BUN 13 (9-20) mg/dL Creatinine 1.01 (0.55-1.30) mg/dl Estimated GFR 59 ML/MIN Glucose 132 H (70-110) MG/DL Calcium 9.3 (8.5-10.1) mg/dL Total Bilirubin 0.3 (0.2-1.0) mg/dL AST 31 (15-37) U/L ALT 21 (12-78) U/L Alkaline Phosphatase 83 (46-116) U/L Troponin I (0.000-0.056) ng/ml Serum Total Protein 6.0 L (6.4-8.2) gm/dL Albumin 2.5 L (3.4-5.0) g/dL Multi-Disciplinary Progress Notes: Multi-Disciplinary Progress Notes 11/07/16 09:53 Pharmacy Note by Dixon Hubbard Please be aware of possible drug interaction between Lexapro and Zithromax. Possibility of QT prolongation Initialized on 11/07/16 09:53 - END OF NOTE Assessment/Plan (1) Perforated duodenal bulb ulcer Current Visit: Yes Status: Acute Assessment & Plan: continue current management, patient receiving mefoxin at this time, NG in place and on protonix gtt Code(s): K26.5 - CHRONIC OR UNSPECIFIED DUODENAL ULCER WITH PERFORATION (2) COPD exacerbation Current Visit: Yes Status: Acute Code(s): J44.1 - CHRONIC OBSTRUCTIVE PULMONARY DISEASE W (ACUTE) EXACERBATION (3) Chest pain Current Visit: Yes Status: Acute Code(s): R07.9 - CHEST PAIN, UNSPECIFIED (4) Hypertension Current Visit: Yes Status: Acute Code(s): I10 - ESSENTIAL (PRIMARY) HYPERTENSION
[2016-11-08] MEDS: Lexapro 10 MG PO SCH (09:28)
[2016-11-08] MEDS: Zestril 5 MG PO SCH ×2 (09:28→22:12)
[2016-11-08] MEDS: ENOXAPARIN SODIUM SQ SCH (09:30)
[2016-11-08] MEDS: Valium 5 MG PO SCH (22:12)
[2016-11-08] MEDS: Zithromax 500 MG/ 250 ML NaCl Premix 250 ML IV SCH (22:12)
[2016-11-09] MEDS: MEFOXIN 1 Gm/ D5W 50 Ml** 50 ML IV SCH ×4 (00:37→17:46)
[2016-11-09] MEDS: DUONEB 0.5-3 MG/3 ml Neb IH SCH ×4 (01:01→17:23)
[2016-11-09] MEDS: Morphine PCA 1 MG/ML 30 ML IV PRN ×2 (06:06→20:39)
[2016-11-09 06:32] LABS: Mean Cell Volume 92.5 fl (78-100); Mean Platelet Volume 9.5 fl (6-9.5); Platelet Count 334 K/mm3 (150-450); Red Blood Count 3.05 M/mm3 (4.1-5.4); Red Cell Distribution Width 14.7 % (11.5-14.0); White Blood Count 12.8 K/mm3 (4.0-10.5)
[2016-11-09 06:38] LABS: Mean Corpuscular Hemoglobin 28.8 pg (26-32)
[2016-11-09] MEDS: Spiriva 18 Mcg/Cap Inhaler IH SCH (06:48)
[2016-11-09] MEDS: ENOXAPARIN SODIUM SQ SCH (08:50)
[2016-11-09] MEDS: Lexapro 10 MG PO SCH (08:50)
[2016-11-09] MEDS: Zestril 5 MG PO SCH ×2 (08:50→21:57)
--- NOTE | 2016-11-09 09:21 | PCM.NOTE ---
Date and Time: 11/09/16918 Subjective Assessment: patient is stable at this time, coughing up some sputum but feeling better overall. she was able to ambulate in the halls yesterday. Objective Exam General Appearance: no apparent distress Respiratory Exam: prolonged expirations Cardiovascular Exam: regular rate/rhythm, normal heart sounds Gastrointestinal/Abdomen Exam: soft, other (incision c/d/i), No tenderness, No mass Extremity Exam: normal inspection, normal range of motion OBJECTIVE DATA Vital Signs: Vital Signs - 24 hr Temp Pulse Resp BP Pulse Ox 11/09/16 08:00 20 91 L 11/09/16 07:55 97.7 F 112 H 20 127/69 89 L 11/09/16 06:51 110 H 20 91 L 11/09/16 04:55 90 L 11/09/16 04:00 97.8 F 99 H 20 148/79 89 L 11/09/16 02:00 94 L 11/09/16 01:02 100 H 17 94 L 11/09/16 00:00 97.7 F 106 H 18 107/67 92 L 11/08/16 22:00 92 L 11/08/16 20:00 20 11/08/16 19:00 97.7 F 97 H 20 104/65 92 L 11/08/16 18:53 92 L 11/08/16 17:24 105 H 20 92 L 11/08/16 17:00 92 L 11/08/16 15:07 92 L 11/08/16 14:28 98.2 F 88 22 133/74 91 L 11/08/16 13:00 91 L 11/08/16 12:23 97 H 20 92 L 11/08/16 11:20 92 L 11/08/16 11:00 98.2 F 99 H 20 124/70 90 L Oxygen-Last 24 hours O2 Percentage 5 Liters = 40% O2 Percentage 5 Liters = 40% O2 Percentage 5 Liters = 40% O2 Percentage 5 Liters = 40% O2 Percentage 5 Liters = 40% O2 Percentage 5 Liters = 40% Pain Assessment - Last Documented Pain Intensity 6 Pain Scale Used 0-10 Pain Scale Intake and Output: Intake & Output 11/06/16 11/07/16 11/08/16 11/09/16 11:59 11:59 11:59 11:59 Intake Total 3248 3655 Output Total 2940 4120 Balance 308 -465 Weight 62.051 kg 70.851 kg 68.629 kg Lab Results: Lab Results-Last 24 Hours 11/09/16 Range/Units 05:25 WBC 12.8 H (4.0-10.5) K/mm3 RBC 3.05 L (4.1-5.4) M/mm3 Hgb 8.8 L (12.0-16.0) gm/dl Hct 28.2 L (35-47) % MCV 92.5 (78-100) fl MCH 28.8 (26-32) pg MCHC 31.2 L (32-36) g/dl RDW 14.7 H (11.5-14.0) % Plt Count 334 (150-450) K/mm3 MPV 9.5 (6-9.5) fl Multi-Disciplinary Progress Notes: Multi-Disciplinary Progress Notes 11/08/16 10:45 (created 11/08/16 13:03) Case Management Note by Gloria Ford DISCHARGE PLAN REVIEWED, PT REPORTS THAT SHE LIVES AT HOME WITH DAUGHTER AND GRANDCHILDREN. NORMALLY ACTIVE, PROVIDES SELF CARE, INDEPENDENT WITH ALL ADL' S. REPORTS THAT SHE PLANS TO RETURN HOME TO PRE EPISODIC LEVEL OF [place]. DECLINED ADDNL NEEDS. DAUGHTER CAN ASSIST IF NEEDED. DAUGHTER AT BEDSIDE AND AGREES. WILL CONTINUE TO FOLLOW AND ASSESS ALL DC NEEDS. WILL CONTINUE TO FOLLOW AND ASSESS FOR ALL DC NEEDS. Initialized on 11/08/16 13:03 - END OF NOTE Assessment/Plan (1) Perforated duodenal bulb ulcer Current Visit: Yes Status: Acute Assessment & Plan: stable s/p maria r patch, tolerating ice chips at this point Code(s): K26.5 - CHRONIC OR UNSPECIFIED DUODENAL ULCER WITH PERFORATION (2) COPD exacerbation Current Visit: Yes Status: Acute Code(s): J44.1 - CHRONIC OBSTRUCTIVE PULMONARY DISEASE W (ACUTE) EXACERBATION (3) Chest pain Current Visit: Yes Status: Acute Code(s): R07.9 - CHEST PAIN, UNSPECIFIED (4) Hypertension Current Visit: Yes Status: Acute Code(s): I10 - ESSENTIAL (PRIMARY) HYPERTENSION
[2016-11-09] MEDS: D5W/0.45NS W/ 20mEq KCl 1000 ML 1,000 ML IV SCH (10:13)
[2016-11-09] MEDS: PROTONIX 40 MG IV*** 80 MG in Sodium Chloride 0.9% 500 ML 500 ML IV SCH ×2 (10:22→22:42)
[2016-11-09] MEDS: Zithromax 500 MG/ 250 ML NaCl Premix 250 ML IV SCH (21:54)
[2016-11-09] MEDS: Valium 5 MG PO SCH (21:57)
[2016-11-10] MEDS: DUONEB 0.5-3 MG/3 ml Neb IH SCH ×4 (00:32→17:09)
[2016-11-10] MEDS: MEFOXIN 1 Gm/ D5W 50 Ml** 50 ML IV SCH ×4 (00:33→17:12)
[2016-11-10] MEDS: D5W/0.45NS W/ 20mEq KCl 1000 ML 1,000 ML IV SCH ×2 (03:36→21:55)
[2016-11-10 05:57] LABS: Eosinophil % 0.3 % (0.00-5.0); Granulocytes % 86.2 % (36.0-66.0); Lymphocytes % 7.2 % (24.0-44.0); Mean Cell Volume 90.8 fl (78-100); Mean Platelet Volume 9.9 fl (6-9.5); Monocytes % 6.3 % (0.0-12.0); Platelet Count 308 K/mm3 (150-450); Red Blood Count 3.14 M/mm3 (4.1-5.4); Red Cell Distribution Width 14.2 % (11.5-14.0); White Blood Count 12.2 K/mm3 (4.0-10.5)
[2016-11-10 06:01] LABS: Mean Corpuscular Hemoglobin 28.6 pg (26-32)
[2016-11-10 06:14] LABS: ALBUMIN 2.3 g/dL (3.4-5.0); ALKALINE PHOSPHATASE 84 U/L (46-116); BILIRUBIN,TOTAL 0.7 mg/dL (0.2-1.0); BLOOD UREA NITROGEN 4 mg/dL (9-20); CHLORIDE 100 mEq/L (98-107); Carbon Dioxide 26.4 mEq/L (21-32); Glucose 119 MG/DL (70-110); MAGNESIUM 1.4 mg/dL (1.8-2.4); Potassium 4.4 mEq/L (3.5-5.1); SGOT/AST 32 U/L (15-37); SGPT/ALT 17 U/L (12-78); SODIUM 134 mEq/L (136-145); Total Protein 6.2 gm/dL (6.4-8.2)
--- NOTE | 2016-11-10 06:44 | PCM.NOTE ---
Date and Time: 11/10/16641 Subjective Assessment: patient doing well, has some productive cough, no fever. dyspneic with any exertion, requiring oxymask at this time. Objective Exam General Appearance: no apparent distress, alert Respiratory Exam: prolonged expirations, No crackles/rales, No wheezing Cardiovascular Exam: regular rate/rhythm, normal heart sounds Gastrointestinal/Abdomen Exam: soft, No tenderness, No mass Extremity Exam: normal inspection, normal range of motion OBJECTIVE DATA Vital Signs: Vital Signs - 24 hr Temp Pulse Resp BP Pulse Ox 11/10/16 05:35 104 H 12 97 11/10/16 05:00 96 11/10/16 04:00 97.5 F 105 H 20 146/80 96 11/10/16 00:39 92 L 11/10/16 00:00 112 H 22 89 L 11/09/16 23:28 98.0 F 124 H 18 147/87 92 L 11/09/16 21:00 92 L 11/09/16 20:39 92 L 11/09/16 20:00 97.5 F 121 H 20 152/80 93 L 11/09/16 17:54 91 L 11/09/16 17:26 84 18 93 L 11/09/16 16:11 97.8 F 89 20 151/78 95 11/09/16 16:00 20 95 11/09/16 12:00 97.6 F 118 H 20 144/81 90 L 11/09/16 10:06 91 L 11/09/16 08:00 20 91 L 11/09/16 07:55 97.7 F 112 H 20 127/69 89 L 11/09/16 06:51 110 H 20 91 L Oxygen-Last 24 hours O2 Percentage 100% O2 Percentage 100% O2 Percentage 5 Liters = 40% O2 Percentage 5 Liters = 40% O2 Percentage 5 Liters = 40% Pain Assessment - Last Documented Pain Intensity 8 Pain Scale Used 0-10 Pain Scale Intake and Output: Intake & Output 11/07/16 11/08/16 11/09/16 11/10/16 11:59 11:59 11:59 11:59 Intake Total 3022 1629 3493 Output Total 7302 2222 3686 Balance 512 -8279 -5252 Weight 62.051 kg 70.851 kg 68.629 kg 69.853 kg Lab Results: Lab Results-Last 24 Hours 11/10/16 11/10/16 Range/Units 04:30 04:30 WBC 12.2 H (4.0-10.5) K/mm3 RBC 3.14 L (4.1-5.4) M/mm3 Hgb 9.0 L (12.0-16.0) gm/dl Hct 28.5 L (35-47) % MCV 90.8 (78-100) fl MCH 28.6 (26-32) pg MCHC 31.6 L (32-36) g/dl RDW 14.2 H (11.5-14.0) % Plt Count 308 (150-450) K/mm3 MPV 9.9 H (6-9.5) fl Gran % 86.2 H (36.0-66.0) % Lymphocytes % 7.2 L (24.0-44.0) % Monocytes % 6.3 (0.0-12.0) % Eosinophils % 0.3 (0.00-5.0) % Basophils % 0.0 (0.0-0.4) % Basophils # 0 (0-0.4) Sodium 134 L (136-145) mEq/L Potassium 4.4 (3.5-5.1) mEq/L Chloride 100 (98-107) mEq/L Carbon Dioxide 26.4 (21-32) mEq/L Anion Gap 12.0 (5-15) MEQ/L BUN 4 L (9-20) mg/dL Creatinine 0.70 (0.55-1.30) mg/dl Estimated GFR > 60 ML/MIN Glucose 119 H (70-110) MG/DL Calcium 9.6 (8.5-10.1) mg/dL Magnesium 1.4 L (1.8-2.4) mg/dL Total Bilirubin 0.7 (0.2-1.0) mg/dL AST 32 (15-37) U/L ALT 17 (12-78) U/L Alkaline Phosphatase 84 (46-116) U/L Serum Total Protein 6.2 L (6.4-8.2) gm/dL Albumin 2.3 L (3.4-5.0) g/dL Radiology Exams: Radiology Procedures Category Date Time Status CHEST 1 VIEW (PORTABLE) Routine Exams 11/10/16 06:41 Ordered Multi-Disciplinary Progress Notes: Multi-Disciplinary Progress Notes 11/09/16 13:24 Respiratory Note by Edwina Nichole spo2 79 on n/c 5lpm. placed on oxymask 15lpm spo2 94 Initialized on 11/09/16 13:24 - END OF NOTE 11/09/16 12:09 Case Management Note by Makeda Mclean DISCHARGE PLAN REVIEWED. NO CHANGE IN PREVIOUS PLAN. PLAN IS TO GO HOME WITH DAUGHTER AND GRANDCHILDREN TO PRE EPISODIC LEVEL OF FUNCTION. Initialized on 11/09/16 12:09 - END OF NOTE Assessment/Plan (1) Perforated duodenal bulb ulcer Current Visit: Yes Status: Acute Assessment & Plan: stable, looks good at this time s/p maria r patch post-op day #3 Code(s): K26.5 - CHRONIC OR UNSPECIFIED DUODENAL ULCER WITH PERFORATION (2) COPD exacerbation Current Visit: Yes Status: Acute Assessment & Plan: breath sounds are normal today, will check chest xray and bnp Code(s): J44.1 - CHRONIC OBSTRUCTIVE PULMONARY DISEASE W (ACUTE) EXACERBATION (3) Chest pain Current Visit: Yes Status: Acute Code(s): R07.9 - CHEST PAIN, UNSPECIFIED (4) Hypertension Current Visit: Yes Status: Acute Code(s): I10 - ESSENTIAL (PRIMARY) HYPERTENSION
[2016-11-10] MEDS: Spiriva 18 Mcg/Cap Inhaler IH SCH (09:00)
[2016-11-10] MEDS: Zofran 4 MG/2 ML VIAL IV SCH ×3 (09:31→21:55)
[2016-11-10] MEDS: Lexapro 10 MG PO SCH (09:41)
[2016-11-10] MEDS: ENOXAPARIN SODIUM SQ SCH (09:41)
[2016-11-10] MEDS: Zestril 5 MG PO SCH ×2 (09:41→21:55)
--- NOTE | 2016-11-10 10:07 | XRAY ---
Indication: Dyspnea. Hypoxia. Comparison: May 19, 2016 Portable chest less inflated today with now diffuse bilateral interstitial pulmonary edema with small bibasilar effusions/atelectasis. Heart is not enlarged. New NG tube with the tip in the left upper quadrant abdomen presumed in the stomach. Bony thorax intact again with osteopenia. Impression: New pulmonary edema with bibasilar effusion/atelectasis. Superimposed pneumonia not completely excluded.
[2016-11-10] MEDS: Morphine PCA 1 MG/ML 30 ML IV PRN (11:28)
[2016-11-10] MEDS: Lasix 20 MG/2 ML IV SCH (11:32)
[2016-11-10] MEDS: CETACAINE SPRAY TP PRN (11:32)
[2016-11-10] MEDS: PROTONIX 40 MG IV*** 80 MG in Sodium Chloride 0.9% 500 ML 500 ML IV SCH ×2 (11:32→21:48)
[2016-11-10] MEDS: Magnesium 1 Gm / 100 Ml D5W*** 100 ML IV SCH ×2 (17:59→18:55)
[2016-11-10] MEDS: Zithromax 500 MG/ 250 ML NaCl Premix 250 ML IV SCH (21:54)
[2016-11-10] MEDS: Valium 5 MG PO SCH (21:55)
[2016-11-11] MEDS: Lasix 20 MG/2 ML IV SCH ×3 (00:24→23:39)
[2016-11-11] MEDS: MEFOXIN 1 Gm/ D5W 50 Ml** 50 ML IV SCH ×5 (00:25→23:39)
[2016-11-11] MEDS: DUONEB 0.5-3 MG/3 ml Neb IH SCH ×3 (01:24→18:55)
[2016-11-11] MEDS: Morphine PCA 1 MG/ML 30 ML IV PRN ×2 (03:11→17:25)
[2016-11-11] MEDS: Zofran 4 MG/2 ML VIAL IV SCH ×4 (03:17→22:25)
[2016-11-11] MEDS: D5W/0.45NS W/ 20mEq KCl 1000 ML 1,000 ML IV SCH (05:27)
[2016-11-11] MEDS: Spiriva 18 Mcg/Cap Inhaler IH SCH (06:22)
--- NOTE | 2016-11-11 07:52 | PCM.NOTE ---
Date and Time: 11/11/16 0749 Subjective Assessment: patient doing better,her breathing has improved. she is ambulating. no flatus or bowel movements as of yet Objective Exam General Appearance: no apparent distress, alert Respiratory Exam: diminished breath sounds, prolonged expirations, No crackles/ rales, No wheezing Cardiovascular Exam: regular rate/rhythm, normal heart sounds Gastrointestinal/Abdomen Exam: soft, No tenderness, No mass Extremity Exam: normal inspection, normal range of motion OBJECTIVE DATA Vital Signs: Vital Signs - 24 hr Temp Pulse Resp BP Pulse Ox 11/11/16 07:05 99.1 F 114 H 20 120/65 93 L 11/11/16 06:17 105 H 20 100 11/11/16 05:00 97 11/11/16 04:46 98.1 F 115 H 16 118/63 97 11/11/16 03:11 97 11/11/16 01:25 108 H 15 96 11/11/16 01:00 97 11/11/16 00:00 19 11/10/16 23:43 99.0 F 108 H 19 123/72 98 11/10/16 21:00 94 L 11/10/16 20:00 97.7 F 119 H 20 112/63 94 L 11/10/16 17:26 97 11/10/16 17:00 112 H 18 97 11/10/16 16:00 97.6 F 124 H 20 135/76 96 11/10/16 15:28 99 11/10/16 13:00 99 11/10/16 12:00 22 11/10/16 11:28 99 11/10/16 11:24 97.5 F 113 H 22 125/73 99 11/10/16 11:00 113 H 20 96 11/10/16 09:00 92 L 11/10/16 08:00 20 Oxygen-Last 24 hours O2 Percentage 80% O2 Percentage 80% O2 Percentage 80% Pain Assessment - Last Documented Pain Intensity 6 Pain Scale Used 0-10 Pain Scale Intake and Output: Intake & Output 11/08/16 11/09/16 11/10/16 11/11/16 11:59 11:59 11:59 11:59 Intake Total 3249 0215 6811 2600 Output Total 3430 3493 7849 0514 Balance 969 -8869 -2352 -4824 Weight 70.851 kg 68.629 kg 66.633 kg 65.816 kg Lab Results: Lab Results-Last 24 Hours 11/10/16 11/11/16 Range/Units 04:30 05:15 Magnesium 1.4 L (1.8-2.4) mg/dL NT-Pro-B Natriuret Pep 6355 H (0-125) pg/ml Radiology Exams: Radiology Procedures Category Date Time Status CHEST 1 VIEW (PORTABLE) Routine Exams 11/10/16 06:41 Completed Assessment/Plan (1) Perforated duodenal bulb ulcer Current Visit: Yes Status: Acute Code(s): K26.5 - CHRONIC OR UNSPECIFIED DUODENAL ULCER WITH PERFORATION (2) COPD exacerbation Current Visit: Yes Status: Acute Assessment & Plan: contineu rocephin and zithromax, chest xray over the weekend c/w pulmonary edema and oxygen requirement increased so IV fluid rate was decreased and lasix began IV yesterday. she has improved since then. will continue to monitor fluid balance closely Code(s): J44.1 - CHRONIC OBSTRUCTIVE PULMONARY DISEASE W (ACUTE) EXACERBATION (3) Chest pain Current Visit: Yes Status: Acute Code(s): R07.9 - CHEST PAIN, UNSPECIFIED (4) Hypertension Current Visit: Yes Status: Acute Code(s): I10 - ESSENTIAL (PRIMARY) HYPERTENSION
[2016-11-11] MEDS ORDERED: Magnesium Sulfate 1 GM/2 ML VIAL IV ONE (08:00)
[2016-11-11] MEDS: Magnesium 1 Gm / 100 Ml D5W*** 100 ML IV SCH ×2 (08:06→08:38)
[2016-11-11] MEDS: Lexapro 10 MG PO SCH (09:07)
[2016-11-11] MEDS: Zestril 5 MG PO SCH ×2 (09:07→22:11)
[2016-11-11] MEDS: ENOXAPARIN SODIUM SQ SCH (09:07)
[2016-11-11] MEDS: Protonix 40MG Tablet PO SCH ×2 (09:08→22:11)
[2016-11-11] MEDS: NORCO 5/325 MG PO PRN (12:05)
[2016-11-11] MEDS ORDERED: DUONEB 0.5-3 MG/3 ml Neb IH ONE (18:34)
[2016-11-11] MEDS ORDERED: PROVENTIL 2.5 MG/3 ML NEB IH PRN (22:06)
[2016-11-11] MEDS: Valium 5 MG PO SCH (22:11)
[2016-11-11] MEDS: Zithromax 500 MG/ 250 ML NaCl Premix 250 ML IV SCH (22:12)
[2016-11-11] MEDS: PROVENTIL 2.5 MG/3 ML NEB IH SCH (22:16)
[2016-11-12] MEDS: Zofran 4 MG/2 ML VIAL IV SCH ×4 (05:00→22:42)
[2016-11-12 05:31] LABS: Mean Cell Volume 89.4 fl (78-100); Mean Corpuscular Hemoglobin 28.3 pg (26-32); Mean Platelet Volume 9.4 fl (6-9.5); Platelet Count 372 K/mm3 (150-450); Red Blood Count 3.21 M/mm3 (4.1-5.4); Red Cell Distribution Width 13.7 % (11.5-14.0)
[2016-11-12] MEDS: MEFOXIN 1 Gm/ D5W 50 Ml** 50 ML IV SCH ×3 (05:36→17:39)
[2016-11-12] MEDS: PROVENTIL 2.5 MG/3 ML NEB IH SCH ×2 (05:37→19:20)
[2016-11-12] MEDS: Spiriva 18 Mcg/Cap Inhaler IH SCH (05:38)
[2016-11-12 06:00] LABS: ALBUMIN 2.1 g/dL (3.4-5.0); ALKALINE PHOSPHATASE 87 U/L (46-116); ANION GAP 10.9 MEQ/L (5-15); BILIRUBIN,TOTAL 1.6 mg/dL (0.2-1.0); BLOOD UREA NITROGEN 5 mg/dL (9-20); CHLORIDE 93 mEq/L (98-107); Carbon Dioxide 34.7 mEq/L (21-32); Glucose 95 MG/DL (70-110); MAGNESIUM 1.4 mg/dL (1.8-2.4); Potassium 3.3 mEq/L (3.5-5.1); SGOT/AST 18 U/L (15-37); SGPT/ALT 11 U/L (12-78); SODIUM 135 mEq/L (136-145); Total Protein 6.4 gm/dL (6.4-8.2)
[2016-11-12 06:27] LABS: Total Cells Counted 100
[2016-11-12 06:31] LABS: ANISOCYTOSIS 1+; Platelet Estimate NORMAL (NORMAL); Poikilocytosis 1+
--- NOTE | 2016-11-12 09:21 | PCM.NOTE ---
Date and Time: 11/12/16915 Subjective Assessment: Pt's only complaint is that the NG tube is uncomfortable. She denies any abd pain. Has ice chips, it's unclear if she's had any vomiting from that. She thinks she came to the hospital 2d ago. Does complain her stomach is "empty" Objective Exam General Appearance: no apparent distress Neurologic Exam: alert, cooperative Skin Exam: normal color, warm, dry Respiratory Exam: normal breath sounds, lungs clear, No crackles/rales, No rhonchi, No wheezing Cardiovascular Exam: regular rate/rhythm, normal heart sounds Gastrointestinal/Abdomen Exam: soft, other (NG tube in place; approx 500cc light green fluid in container. hypoactive bowel sounds.), No tenderness, No distention Extremity Exam: No pedal edema, No swelling OBJECTIVE DATA Vital Signs: Vital Signs - 24 hr Temp Pulse Resp BP Pulse Ox 11/12/16 07:19 98 F 90 22 112/58 95 11/12/16 05:37 94 H 16 88 L 11/12/16 05:00 95 11/12/16 04:00 98.1 F 99 H 18 101/57 95 11/12/16 01:00 95 11/12/16 00:00 98.4 F 108 H 18 108/65 98 11/11/16 21:00 92 L 11/11/16 20:00 98.4 F 102 H 18 110/63 98 11/11/16 18:55 102 H 16 98 11/11/16 17:25 97 11/11/16 17:00 97 11/11/16 16:00 97.8 F 101 H 20 107/67 98 11/11/16 13:00 93 L 11/11/16 12:00 97.8 F 109 H 20 110/69 97 11/11/16 11:11 97 Oxygen-Last 24 hours O2 Percentage 5 Liters = 40% O2 Percentage 5 Liters = 40% O2 Percentage 5 Liters = 40% Pain Assessment - Last Documented Pain Intensity 6 Pain Scale Used 0-10 Pain Scale Intake and Output: Intake & Output 11/09/16 11/10/16 11/11/16 11/12/16 11:59 11:59 11:59 11:59 Intake Total 3656 9148 2600 1803 Output Total 5054 2089 2300 3900 Balance -6931 -7683 -5787 -9789 Weight 68.629 kg 66.633 kg 65.816 kg 66.134 kg Lab Results: Lab Results-Last 24 Hours 11/12/16 11/12/16 Range/Units 05:05 05:05 WBC 8.0 (4.0-10.5) K/mm3 RBC 3.21 L (4.1-5.4) M/mm3 Hgb 9.1 L (12.0-16.0) gm/dl Hct 28.7 L (35-47) % MCV 89.4 (78-100) fl MCH 28.3 (26-32) pg MCHC 31.7 L (32-36) g/dl RDW 13.7 (11.5-14.0) % Plt Count 372 (150-450) K/mm3 MPV 9.4 (6-9.5) fl Segmented Neutrophils 87 H (36.0-66.0) % Lymphocytes (Manual) 10 L (24-44) % Monocytes (Manual) 3 (0.0-12.0) % Platelet Estimate NORMAL (NORMAL) Poikilocytosis 1+ Anisocytosis 1+ Sodium 135 L (136-145) mEq/L Potassium 3.3 L (3.5-5.1) mEq/L Chloride 93 L (98-107) mEq/L Carbon Dioxide 34.7 H (21-32) mEq/L Anion Gap 10.9 (5-15) MEQ/L BUN 5 L (9-20) mg/dL Creatinine 0.76 (0.55-1.30) mg/dl Estimated GFR > 60 ML/MIN Glucose 95 (70-110) MG/DL Calcium 9.5 (8.5-10.1) mg/dL Magnesium 1.4 L (1.8-2.4) mg/dL Total Bilirubin 1.6 H (0.2-1.0) mg/dL AST 18 (15-37) U/L ALT 11 L (12-78) U/L Alkaline Phosphatase 87 (46-116) U/L NT-Pro-B Natriuret Pep 2134 H (0-125) pg/ml Serum Total Protein 6.4 (6.4-8.2) gm/dL Albumin 2.1 L (3.4-5.0) g/dL Multi-Disciplinary Progress Notes: Multi-Disciplinary Progress Notes 11/11/16 11:40 Case Management Note by Makeda Mclean DISCHARGE PLANS REVIEWED. PLAN TO RETURN HOME TO PRE EPISODIC LEVEL OF FUNCTION. DENIES NEED FOR ANY FURTHER DME/ OR SERVICE. WILL CONTINUE TO MONITOR FOR ALL D/C NEEDS. Initialized on 11/11/16 11:40 - END OF NOTE Assessment/Plan (1) Perforated duodenal bulb ulcer Current Visit: Yes Status: Acute Assessment & Plan: per surgery, thank you. Still has NG and unable to jairo po. Code(s): K26.5 - CHRONIC OR UNSPECIFIED DUODENAL ULCER WITH PERFORATION (2) Nutrition deficiency due to insufficient food Current Visit: Yes Status: Acute Assessment & Plan: start TPN, she hasn't eaten since before admission on 11/06/16. Code(s): E63.9 - NUTRITIONAL DEFICIENCY, UNSPECIFIED; T73.0XXA - STARVATION, INITIAL ENCOUNTER (3) Hypokalemia Current Visit: Yes Status: Acute Assessment & Plan: Will recheck in a.m. after starts TPN. Code(s): E87.6 - HYPOKALEMIA (4) COPD exacerbation Current Visit: Yes Status: Acute Assessment & Plan: breathing is improved. BNP is decreased. Code(s): J44.1 - CHRONIC OBSTRUCTIVE PULMONARY DISEASE W (ACUTE) EXACERBATION (5) Hypertension Current Visit: Yes Status: Chronic Assessment & Plan: stable Code(s): I10 - ESSENTIAL (PRIMARY) HYPERTENSION
[2016-11-12] MEDS: Lexapro 10 MG PO SCH (09:35)
[2016-11-12] MEDS: Protonix 40MG Tablet PO SCH ×2 (09:35→22:42)
[2016-11-12] MEDS: Zestril 5 MG PO SCH ×2 (09:35→22:42)
[2016-11-12] MEDS: ENOXAPARIN SODIUM SQ SCH (09:35)
[2016-11-12] MEDS: Morphine PCA 1 MG/ML 30 ML IV PRN (10:58)
[2016-11-12] MEDS: Lasix 20 MG/2 ML IV SCH (12:24)
[2016-11-12] MEDS: D5W/0.45NS W/ 20mEq KCl 1000 ML 1,000 ML IV SCH (12:30)
[2016-11-12] MEDS: INTRALIPID 20% 250 ML 250 ML, TPN Electrolytes 40 ML, Multitrace-4 Conc Vial 1 ML*** 1 ... IV SCH ×7 (14:40)
[2016-11-12] MEDS: CETACAINE SPRAY TP PRN (17:39)
[2016-11-12] MEDS: Valium 5 MG PO SCH (22:42)
[2016-11-12] MEDS: Zithromax 500 MG/ 250 ML NaCl Premix 250 ML IV SCH (22:43)
[2016-11-13] MEDS: Lasix 20 MG/2 ML IV SCH ×2 (00:32→11:26)
[2016-11-13] MEDS: MEFOXIN 1 Gm/ D5W 50 Ml** 50 ML IV SCH ×5 (00:33→23:59)
[2016-11-13] MEDS: Morphine PCA 1 MG/ML 30 ML IV PRN ×2 (02:16→16:01)
[2016-11-13] MEDS: Zofran 4 MG/2 ML VIAL IV SCH ×4 (03:26→21:35)
[2016-11-13 05:59] LABS: Mean Cell Volume 89.8 fl (78-100); Mean Corpuscular Hemoglobin 28.3 pg (26-32); Mean Platelet Volume 10.1 fl (6-9.5); Platelet Count 363 K/mm3 (150-450); Red Blood Count 3.53 M/mm3 (4.1-5.4); Red Cell Distribution Width 13.7 % (11.5-14.0); White Blood Count 8.2 K/mm3 (4.0-10.5)
[2016-11-13 06:14] LABS: ALBUMIN 2.2 g/dL (3.4-5.0); ALKALINE PHOSPHATASE 102 U/L (46-116); ANION GAP 11.9 MEQ/L (5-15); BILIRUBIN,TOTAL 1.1 mg/dL (0.2-1.0); BLOOD UREA NITROGEN 8 mg/dL (9-20); CHLORIDE 92 mEq/L (98-107); Carbon Dioxide 34.1 mEq/L (21-32); Glucose 125 MG/DL (70-110); MAGNESIUM 1.5 mg/dL (1.8-2.4); Potassium 3.7 mEq/L (3.5-5.1); SGOT/AST 19 U/L (15-37); SGPT/ALT 10 U/L (12-78); SODIUM 134 mEq/L (136-145); Total Protein 5.9 gm/dL (6.4-8.2)
[2016-11-13 06:54] LABS: BAND 1 % (0.0-2.0); Eosinophil 3 % (0.00-3.0); Total Cells Counted 100
[2016-11-13 06:55] LABS: ANISOCYTOSIS 1+; Platelet Estimate NORMAL (NORMAL); Poikilocytosis 1+
[2016-11-13] MEDS: Spiriva 18 Mcg/Cap Inhaler IH SCH (07:06)
[2016-11-13] MEDS: PROVENTIL 2.5 MG/3 ML NEB IH SCH ×2 (07:06→17:41)
[2016-11-13] MEDS: ENOXAPARIN SODIUM SQ SCH (09:14)
[2016-11-13] MEDS: Protonix 40MG Tablet PO SCH ×2 (09:15→21:35)
[2016-11-13] MEDS: Lexapro 10 MG PO SCH (09:15)
[2016-11-13] MEDS: Zestril 5 MG PO SCH ×2 (09:15→21:35)
--- NOTE | 2016-11-13 09:46 | PCM.NOTE ---
Date and Time: 11/13/1644 Subjective Assessment: patient is doing well, tolerating clears with no problems. she is ambulating, still has some sputum production with cough but overall feeling much better Objective Exam General Appearance: no apparent distress, alert Respiratory Exam: prolonged expirations, wheezing Cardiovascular Exam: regular rate/rhythm, normal heart sounds Gastrointestinal/Abdomen Exam: soft, other (incision c/d/i, serous fluid in JAN bulbs), No tenderness, No mass Extremity Exam: normal inspection, normal range of motion OBJECTIVE DATA Vital Signs: Vital Signs - 24 hr Temp Pulse Resp BP Pulse Ox 11/13/16 07:16 98 F 78 18 118/60 96 11/13/16 07:08 101 H 18 84 L 11/13/16 06:16 99 11/13/16 05:00 98 11/13/16 04:00 98.0 F 103 H 14 117/62 98 11/13/16 02:16 99 11/13/16 02:00 98.1 F 101 H 14 107/68 98 11/13/16 01:00 98 11/13/16 00:00 15 11/12/16 22:00 97.7 F 100 H 12 137/77 99 11/12/16 21:00 99 11/12/16 20:00 14 11/12/16 19:21 91 H 10 L 93 L 11/12/16 17:50 93 L 11/12/16 17:33 97.8 F 76 22 114/67 93 L 11/12/16 17:00 95 11/12/16 16:36 98 H 18 82 L 11/12/16 14:58 92 L 11/12/16 13:38 98 H 18 87 L 11/12/16 13:35 97.7 F 86 18 116/58 94 L 11/12/16 13:00 90 L 11/12/16 10:58 92 L Oxygen-Last 24 hours O2 Percentage 70% O2 Percentage 70% Pain Assessment - Last Documented Pain Intensity 5 Pain Scale Used 0-10 Pain Scale Intake and Output: Intake & Output 11/10/16 11/11/16 11/12/16 11/13/16 11:59 11:59 11:59 11:59 Intake Total 4119 2600 1803 2343 Output Total 5153 5900 3900 3005 Balance -0608 -7769 -2097 -662 Weight 66.633 kg 65.816 kg 66.134 kg 65.408 kg Lab Results: Lab Results-Last 24 Hours 11/13/16 11/13/16 Range/Units 05:20 05:20 WBC 8.2 (4.0-10.5) K/mm3 RBC 3.53 L (4.1-5.4) M/mm3 Hgb 10.0 L (12.0-16.0) gm/dl Hct 31.7 L (35-47) % MCV 89.8 (78-100) fl MCH 28.3 (26-32) pg MCHC 31.5 L (32-36) g/dl RDW 13.7 (11.5-14.0) % Plt Count 363 (150-450) K/mm3 MPV 10.1 H (6-9.5) fl Segmented Neutrophils 72 H (36.0-66.0) % Band Neutrophils 1 (0.0-2.0) % Lymphocytes (Manual) 19 L (24-44) % Monocytes (Manual) 5 (0.0-12.0) % Eosinophils (Manual) 3 (0.00-3.0) % Platelet Estimate NORMAL (NORMAL) Poikilocytosis 1+ Anisocytosis 1+ Sodium 134 L (136-145) mEq/L Potassium 3.7 (3.5-5.1) mEq/L Chloride 92 L (98-107) mEq/L Carbon Dioxide 34.1 H (21-32) mEq/L Anion Gap 11.9 (5-15) MEQ/L BUN 8 L (9-20) mg/dL Creatinine 0.77 (0.55-1.30) mg/dl Estimated GFR > 60 ML/MIN Glucose 125 H (70-110) MG/DL Calcium 9.5 (8.5-10.1) mg/dL Magnesium 1.5 L (1.8-2.4) mg/dL Total Bilirubin 1.1 H (0.2-1.0) mg/dL AST 19 (15-37) U/L ALT 10 L (12-78) U/L Alkaline Phosphatase 102 (46-116) U/L NT-Pro-B Natriuret Pep 479 H (0-125) pg/ml Serum Total Protein 5.9 L (6.4-8.2) gm/dL Albumin 2.2 L (3.4-5.0) g/dL Multi-Disciplinary Progress Notes: Multi-Disciplinary Progress Notes 11/12/16 11:08 Nutrition Note by Nanette Quarles F/u Note: Note pt started on PPN @75cc/hour today which provides approximately 1200 kcals and 66 gms protein. Feeding meets 75% of kcal needs and 100% of protein needs - appropriate for short-term feeding. Will monitor and f/u prn. ABRAHAM Lopez Initialized on 11/12/16 11:08 - END OF NOTE Assessment/Plan (1) Perforated duodenal bulb ulcer Current Visit: Yes Status: Acute Assessment & Plan: doing well postoperatively, tolerating clears Code(s): K26.5 - CHRONIC OR UNSPECIFIED DUODENAL ULCER WITH PERFORATION (2) COPD exacerbation Current Visit: Yes Status: Acute Assessment & Plan: doing well, appears to be near her baseline of breathing Code(s): J44.1 - CHRONIC OBSTRUCTIVE PULMONARY DISEASE W (ACUTE) EXACERBATION (3) Chest pain Current Visit: Yes Status: Acute Code(s): R07.9 - CHEST PAIN, UNSPECIFIED (4) Hypertension Current Visit: Yes Status: Chronic Code(s): I10 - ESSENTIAL (PRIMARY) HYPERTENSION
[2016-11-13] MEDS: INTRALIPID 20% 250 ML 250 ML, TPN Electrolytes 40 ML, Multitrace-4 Conc Vial 1 ML*** 1 ... IV SCH ×7 (14:40)
--- NOTE | 2016-11-13 15:01 | XRAY ---
Indication: Postop exam for perforated duodenal ulcer. Patient ingested a total of 75 cc of diluted Gastrografin. No miss swallow or aspiration. Esophagus is normal in course and caliber without focal abnormality. Contrast freely emptied into the stomach. The stomach and duodenum are unremarkable for single contrast exam. Specifically no contrast extravasation or filling defect. Overhead radiograph demonstrate normal antegrade movement of the Gastrografin into the jejunum. No abnormal extraluminal contrast collection or perforation. There is incidental overlying epigastric surgical drainage tubing, midline cutaneous merritt, and cardiac monitoring leads. Impression: Negative limited single contrast upper GI. Approximately 0.7 minute fluoroscopy used.
[2016-11-13] MEDS: Zithromax 500 MG/ 250 ML NaCl Premix 250 ML IV SCH (21:34)
[2016-11-13] MEDS: Valium 5 MG PO SCH (21:35)
[2016-11-14] MEDS: Lasix 20 MG/2 ML IV SCH ×3 (00:01→13:40)
[2016-11-14] MEDS: Zofran 4 MG/2 ML VIAL IV SCH ×2 (03:38→09:59)
[2016-11-14] MEDS: D5W/0.45NS W/ 20mEq KCl 1000 ML 1,000 ML IV SCH ×2 (05:31→21:53)
[2016-11-14] MEDS: MEFOXIN 1 Gm/ D5W 50 Ml** 50 ML IV SCH ×3 (05:31→13:39)
[2016-11-14 05:57] LABS: Mean Cell Volume 90.8 fl (78-100); Mean Corpuscular Hemoglobin 28.5 pg (26-32); Mean Platelet Volume 9.5 fl (6-9.5); Platelet Count 411 K/mm3 (150-450); Red Blood Count 3.05 M/mm3 (4.1-5.4); Red Cell Distribution Width 13.7 % (11.5-14.0); White Blood Count 6.7 K/mm3 (4.0-10.5)
[2016-11-14 06:20] LABS: ALKALINE PHOSPHATASE 92 U/L (46-116); ANION GAP 9.3 MEQ/L (5-15); BILIRUBIN,TOTAL 0.5 mg/dL (0.2-1.0); BLOOD UREA NITROGEN 11 mg/dL (9-20); CHLORIDE 97 mEq/L (98-107); Carbon Dioxide 34.3 mEq/L (21-32); Glucose 129 MG/DL (70-110); MAGNESIUM 1.6 mg/dL (1.8-2.4); Potassium 3.5 mEq/L (3.5-5.1); SGOT/AST 16 U/L (15-37); SGPT/ALT 9 U/L (12-78); SODIUM 137 mEq/L (136-145); Total Protein 6.5 gm/dL (6.4-8.2)
[2016-11-14] MEDS: PROVENTIL 2.5 MG/3 ML NEB IH SCH ×2 (07:00→19:29)
[2016-11-14] MEDS: Spiriva 18 Mcg/Cap Inhaler IH SCH (07:09)
[2016-11-14 07:15] LABS: BAND 1 % (0.0-2.0); Eosinophil 1 % (0.00-3.0); Total Cells Counted 100
[2016-11-14 07:16] LABS: ANISOCYTOSIS 1+; Platelet Estimate NORMAL (NORMAL); Poikilocytosis 1+
[2016-11-14 07:18] LABS: Polychromasia 1+
--- NOTE | 2016-11-14 07:49 | CONS ---
CONSULT DATE: 11/13/2016 REASON FOR CONSULTATION: Abnormal CT scan. HISTORY: Mylene Travis is a 61 year-old woman known to me from outpatient setting, who has been hospitalized last week at [facility] with abdominal symptoms. The patient has a perforated bowel which was corrected. A CT was performed which also showed a right upper lobe nodular density which had increased from previous CT scan of last fall. The patient is recuperating well. On the day of surgery, she was evaluated by me. However the patient was in surgery. She denies any cough, shortness of breath and reports good control of pain. She still has abdominal binder with a JAN drain which is awaiting its removal. PAST MEDICAL HISTORY: Chronic obstructive pulmonary disease, coronary artery disease, hypertension, anxiety, arthritis and nicotine addiction. PAST SURGICAL HISTORY: No recent surgery. PERSONAL AND SOCIAL HISTORY: As above. MEDICATIONS: Home and current medications are reviewed. ALLERGIES: ALLERGIES NOTED. PHYSICAL EXAMINATION: An elderly frail woman appears comfortable. Vital signs noted. HEENT: Normocephalic. Pupils are reactive. Oral exam unremarkable. NECK: Supple. CVS: First and second heart sounds are normal, regular, rhythmic. RESPIRATORY: Shows diminished breath sounds, posterior crackles occasionally heard which clear upon coughing. ABDOMEN: Abdomen with a binder with wound JAN drain. EXTREMITIES: No edema. LABORATORY DATA AND TESTS: X-rays reviewed. CT scan from 11/06/2016 showed negative for pulmonary embolism but did show enlarging irregular density measuring 1.3 cm in the right upper lobe. ASSESSMENT: Chronic obstructive pulmonary disease. RECOMMENDATIONS: Discussed with the patient abnormal CT findings, will obtain PET scan upon discharge. Likely need excision. However in view of recent abdominal surgery this may have to be deferred for some time. Will also need to update the patient's pulmonary function test to make sure that she can withstand excision. Continue incentive spirometry, pulmonary toilet, bronchodilators and supportive care. Advised to follow up with me after PET scan in outpatient setting.
--- NOTE | 2016-11-14 08:10 | PCM.NOTE ---
Date and Time: 11/14/16807 Subjective Assessment: patient tolerating clears, ambulating. breathing is much improved and she in now on nasal cannula instead of oxymask. Objective Exam General Appearance: no apparent distress, alert Respiratory Exam: prolonged expirations Cardiovascular Exam: regular rate/rhythm, normal heart sounds Gastrointestinal/Abdomen Exam: soft, No tenderness, No mass Extremity Exam: normal inspection, normal range of motion OBJECTIVE DATA Vital Signs: Vital Signs - 24 hr Temp Pulse Resp BP Pulse Ox 11/14/16 07:26 96.8 F 79 20 117/68 95 11/14/16 07:06 87 16 97 11/14/16 05:00 97 11/14/16 04:00 97.8 F 84 16 128/65 97 11/14/16 01:00 97 11/14/16 00:00 98.2 F 100 H 16 141/83 97 11/13/16 21:00 98 11/13/16 20:01 96 11/13/16 20:00 97.8 F 97 H 15 125/65 96 11/13/16 17:42 105 H 20 93 L 11/13/16 16:25 97.8 F 103 H 20 114/69 94 L 11/13/16 13:42 93 L 11/13/16 13:34 97 11/13/16 12:07 97.8 F 90 18 124/68 94 L 11/13/16 11:27 99 Oxygen-Last 24 hours O2 Percentage 5 Liters = 40% O2 Percentage 5 Liters = 40% O2 Percentage 5 Liters = 40% O2 Percentage 3 Liters = 32% Pain Assessment - Last Documented Pain Intensity 5 Pain Scale Used 0-10 Pain Scale Intake and Output: Intake & Output 11/11/16 11/12/16 11/13/16 11/14/16 11:59 11:59 11:59 11:59 Intake Total 2600 1803 2463 3291 Output Total 8950 3900 3403 2027 Balance -5096 -0827 -027 -0784 Weight 65.816 kg 66.134 kg 65.408 kg 65.499 kg Lab Results: Lab Results-Last 24 Hours 11/14/16 11/14/16 Range/Units 05:00 05:00 WBC 6.7 (4.0-10.5) K/mm3 RBC 3.05 L (4.1-5.4) M/mm3 Hgb 8.7 L (12.0-16.0) gm/dl Hct 27.7 L (35-47) % MCV 90.8 (78-100) fl MCH 28.5 (26-32) pg MCHC 31.4 L (32-36) g/dl RDW 13.7 (11.5-14.0) % Plt Count 411 (150-450) K/mm3 MPV 9.5 (6-9.5) fl Segmented Neutrophils 78 H (36.0-66.0) % Band Neutrophils 1 (0.0-2.0) % Lymphocytes (Manual) 19 L (24-44) % Monocytes (Manual) 1 (0.0-12.0) % Eosinophils (Manual) 1 (0.00-3.0) % Differential Comment ABNORMAL Platelet Estimate NORMAL (NORMAL) Polychromasia 1+ Poikilocytosis 1+ Anisocytosis 1+ Sodium 137 (136-145) mEq/L Potassium 3.5 (3.5-5.1) mEq/L Chloride 97 L (98-107) mEq/L Carbon Dioxide 34.3 H (21-32) mEq/L Anion Gap 9.3 (5-15) MEQ/L BUN 11 (9-20) mg/dL Creatinine 0.73 (0.55-1.30) mg/dl Estimated GFR > 60 ML/MIN Glucose 129 H (70-110) MG/DL Calcium 9.4 (8.5-10.1) mg/dL Magnesium 1.6 L (1.8-2.4) mg/dL Total Bilirubin 0.5 (0.2-1.0) mg/dL AST 16 (15-37) U/L ALT 9 L (12-78) U/L Alkaline Phosphatase 92 (46-116) U/L Serum Total Protein 6.5 (6.4-8.2) gm/dL Albumin 2.0 L (3.4-5.0) g/dL Radiology Exams: Radiology Procedures Category Date Time Status UPPER GI Urgent Exams 11/13/16 11:19 Completed Assessment/Plan (1) Perforated duodenal bulb ulcer Current Visit: Yes Status: Acute Assessment & Plan: doing quite well at this time, appreciate surgery management of diet advancement. Code(s): K26.5 - CHRONIC OR UNSPECIFIED DUODENAL ULCER WITH PERFORATION (2) COPD exacerbation Current Visit: Yes Status: Acute Assessment & Plan: much better at this time, continue current management Code(s): J44.1 - CHRONIC OBSTRUCTIVE PULMONARY DISEASE W (ACUTE) EXACERBATION (3) Chest pain Current Visit: Yes Status: Acute Code(s): R07.9 - CHEST PAIN, UNSPECIFIED (4) Hypertension Current Visit: Yes Status: Chronic Code(s): I10 - ESSENTIAL (PRIMARY) HYPERTENSION
[2016-11-14] MEDS: Zestril 5 MG PO SCH ×2 (09:59→21:23)
[2016-11-14] MEDS: Lexapro 10 MG PO SCH (09:59)
[2016-11-14] MEDS: Protonix 40MG Tablet PO SCH ×2 (09:59→21:23)
[2016-11-14] MEDS: ENOXAPARIN SODIUM SQ SCH (09:59)
[2016-11-14] MEDS: NORCO 5/325 MG PO PRN ×3 (14:39→22:28)
[2016-11-14] MEDS ORDERED: LASIX 20 MG PO SCH (15:30)
[2016-11-14] MEDS: Cipro 500 MG PO SCH (21:23)
[2016-11-14] MEDS: Valium 5 MG PO SCH (21:23)
[2016-11-14] MEDS: LASIX 20 MG PO SCH (21:23)
[2016-11-15] MEDS: NORCO 5/325 MG PO PRN ×2 (02:32→06:40)
[2016-11-15] MEDS: Spiriva 18 Mcg/Cap Inhaler IH SCH (07:09)
[2016-11-15] MEDS: PROVENTIL 2.5 MG/3 ML NEB IH SCH (07:09)
[2016-11-15] MEDS ORDERED: DULCOLAX 5 MG PO PRN (08:10)
--- NOTE | 2016-11-15 08:12 | PCM.NOTE ---
Date and Time: 11/15/16 08 Subjective Assessment: patient tolerating po intake, overall feeling better. IV access was lost so she is receiving po cipro and lasix. no vomiting, no bowel movement Objective Exam General Appearance: no apparent distress, alert Respiratory Exam: normal breath sounds, lungs clear, No respiratory distress Cardiovascular Exam: regular rate/rhythm, normal heart sounds Gastrointestinal/Abdomen Exam: soft, normal bowel sounds Extremity Exam: normal inspection, normal range of motion OBJECTIVE DATA Vital Signs: Vital Signs - 24 hr Temp Pulse Resp BP Pulse Ox 11/15/16 08:00 97.8 F 78 20 102/59 93 L 11/15/16 07:56 20 11/15/16 07:11 94 H 18 93 L 11/15/16 04:00 98.3 F 87 16 97/55 94 L 11/15/16 00:00 98.3 F 94 H 14 122/77 95 11/14/16 20:00 97.7 F 90 12 96/53 93 L 11/14/16 19:31 90 12 93 L 11/14/16 16:30 97.8 F 82 18 112/56 95 11/14/16 16:00 18 11/14/16 15:12 93 L 11/14/16 12:00 18 11/14/16 11:47 97.5 F 86 20 118/70 96 11/14/16 11:41 98 11/14/16 10:46 98 Oxygen-Last 24 hours O2 Percentage 2 Liters = 28% O2 Percentage 3 Liters = 32% O2 Percentage 3 Liters = 32% O2 Percentage 2 Liters = 28% O2 Percentage 3 Liters = 32% O2 Percentage 3 Liters = 32% Pain Assessment - Last Documented Pain Intensity 9 Pain Scale Used 0-10 Pain Scale Intake and Output: Intake & Output 11/12/16 11/13/16 11/14/16 11/15/16 11:59 11:59 11:59 11:59 Intake Total 1803 2463 3291 1480 Output Total 390 3409 5795 4406 Balance -3982 -268 -9409 -2854 Weight 66.134 kg 65.408 kg 65.499 kg Radiology Exams: Radiology Procedures Category Date Time Status UPPER GI Urgent Exams 11/13/16 11:19 Completed Multi-Disciplinary Progress Notes: Multi-Disciplinary Progress Notes 11/14/16 13:19 Nutrition Note by Edita Jones NUTRITION F/U: pt presented with free air in abdomen. hx COPD, HTN, PA. Hgb 8.7/hct 27.7, cl 97 , Alb 2. Pt with inadequate oral food/lizabeth intake as r/t no nutrition a/e/b NPO-- N/A; Resolved with diet advance to regular 11/14 (PPN D/C'd). No nutrition dx at this time. Recommend 2G Na diet. Goal #1) po intakes =/> 75%. RD will monitor and f/u prn. ABRAHAM Nettles Initialized on 11/14/16 13:19 - END OF NOTE Assessment/Plan (1) Perforated duodenal bulb ulcer Current Visit: Yes Status: Acute Assessment & Plan: ordered dulcolax for constipation Code(s): K26.5 - CHRONIC OR UNSPECIFIED DUODENAL ULCER WITH PERFORATION (2) COPD exacerbation Current Visit: Yes Status: Acute Assessment & Plan: patient has clear breath sounds now, still requiring oxygen at this point. will likely need qualified for home oxygen Code(s): J44.1 - CHRONIC OBSTRUCTIVE PULMONARY DISEASE W (ACUTE) EXACERBATION (3) Chest pain Current Visit: Yes Status: Acute Code(s): R07.9 - CHEST PAIN, UNSPECIFIED (4) Hypertension Current Visit: Yes Status: Chronic Code(s): I10 - ESSENTIAL (PRIMARY) HYPERTENSION
[2016-11-15 08:24] LABS: Mean Cell Volume 90.6 fl (78-100); Mean Corpuscular Hemoglobin 28.5 pg (26-32); Mean Platelet Volume 9.1 fl (6-9.5); Platelet Count 454 K/mm3 (150-450); Red Blood Count 3.19 M/mm3 (4.1-5.4); Red Cell Distribution Width 13.8 % (11.5-14.0); White Blood Count 6.9 K/mm3 (4.0-10.5)
[2016-11-15] MEDS: LASIX 20 MG PO SCH (09:27)
[2016-11-15] MEDS: Protonix 40MG Tablet PO SCH (09:27)
[2016-11-15] MEDS: Zestril 5 MG PO SCH (09:27)
[2016-11-15] MEDS: ENOXAPARIN SODIUM SQ SCH (09:27)
[2016-11-15] MEDS: Cipro 500 MG PO SCH (09:27)
[2016-11-15] MEDS: Lexapro 10 MG PO SCH (09:27)
--- NOTE | 2016-11-15 14:18 | PCM.DS ---
Discharge Summary Date of Admission: 11/07/16 03:43 Admitting Physician: MICHELLE ALMAZAN Consults: Consults on Case 11/07/16 08:55 Consult Surgery ROUTINE 11/07/16 09:10 Consult Pulmonology ROUTINE 11/12/16 11:45 Nutritional Consult ROUTINE Primary Care Provider: MICHELLE ALMAZAN Allergies Allergies Influenza Virus Vaccines Adverse Reaction (Intermediate, Verified 05/19/16 14:46 ) Vomiting Hospital Summary - Hospital Course Hospital Course: patient admitted and had surgery for perforated duodenal ulcer, has done well postoperatively. she is tolerating po intake, hx of copd and appears to need chronic oxygen therapy as she is clear but still requiring 2L oxygen - Vitals & Intake/Output Vital Signs: Vital Signs Temperature 97.7 F 11/15/16 12:00 Pulse Rate 82 11/15/16 12:00 Respiratory Rate 20 11/15/16 12:00 Blood Pressure 121/57 11/15/16 12:00 O2 Sat by Pulse Oximetry 93 L 11/15/16 12:00 Oxygen-Last Documented O2 Percentage 2 Liters = 28% Intake & Output: Intake & Output 11/13/16 11/14/16 11/15/16 11/16/16 11:59 11:59 11:59 11:59 Intake Total 2463 3291 1480 Output Total 340 5716 4400 Balance -158 -2629 -3727 Weight 65.408 kg 65.499 kg 65.045 kg - Lab Result Diagrams: 11/15/16 08:20 11/14/16 05:00 Lab Results-Last 24 Hrs: Lab Results-Last 24 Hours 11/15/16 Range/Units 08:20 WBC 6.9 (4.0-10.5) K/mm3 RBC 3.19 L (4.1-5.4) M/mm3 Hgb 9.1 L (12.0-16.0) gm/dl Hct 28.9 L (35-47) % MCV 90.6 (78-100) fl MCH 28.5 (26-32) pg MCHC 31.5 L (32-36) g/dl RDW 13.8 (11.5-14.0) % Plt Count 454 H (150-450) K/mm3 MPV 9.1 (6-9.5) fl Micro Results-Entire Visit: Microbiology 11/07/16 11:24 Gram Stain - Final Abdomen - Not Known Wound Culture - Final NO GROWTH 11/08/16 09:45 Gram Stain - Final Sputum - Expectorant Sputum Culture - Final ORGANISMS ISOLATED ARE CONSISTENT WITH NORMAL RESP KAYA LIGHT GROWTH, NO PREDOMINANT ORGANISM 11/07/16 11:24 Urine Culture - Final Urine, Catheterized NO GROWTH - Procedures and Test Procedures and Tests throughout Hospitalization: Therapy Orders & Screens 11/07/16 05:37 Smoking Cessation Education ONCE Comment: Diagnosis: Bronchitis, COPD Smoking Status: Current every day smoker How long have you smoked: 25 yrs Have you smoked in the past 12 months: Yes Approximately how many cigarettes per day: 3 Do you dip or chew tobacco: No 11/07/16 06:39 Respiratory Nebulizer Comment: ALBUTEROL Q2PRN FOR SOB/WHEEZING Diagnosis: Bronchitis, COPD 11/07/16 07:00 Respiratory Nebulizer BID Comment: ALBUTEROL BID Diagnosis: Bronchitis, COPD 11/07/16 10:00 Respiratory MDI DAILY Comment: SPIRIVA 1 CAPSULE DAILY Diagnosis: Bronchitis, COPD 11/07/16 13:00 Respiratory Nebulizer Q6H Comment: DUONEB Q6 Diagnosis: FREE AIR IN ABDOMIN 11/07/16 14:40 Incentive Spirometry Assessmen TID Comment: POST SURGERY Diagnosis: FREE AIR IN ABDOMIN 11/11/16 19:00 Respiratory Nebulizer Q12H Comment: ALBUTEROL BID Diagnosis: FREE AIR IN ABDOMIN 11/15/16 08:10 Qualify for Home Oxygen TODAY Comment: Diagnosis: FREE AIR IN ABDOMIN Discharge Exam General Appearance: no apparent distress, alert Respiratory Exam: normal breath sounds, lungs clear, No respiratory distress Cardiovascular Exam: regular rate/rhythm, normal heart sounds Gastrointestinal/Abdomen Exam: soft, normal bowel sounds, other (incision well approximated) Extremity Exam: normal inspection, normal range of motion Final Diagnosis/Problem List - Final Discharge Diagnosis/Problem (1) Perforated duodenal bulb ulcer Current Visit: Yes Status: Acute (2) COPD exacerbation Current Visit: Yes Status: Acute (3) Chest pain Current Visit: Yes Status: Acute (4) Hypertension Current Visit: Yes Status: Chronic - Discharge Disposition: Home, Self-Care Condition: Good Prescriptions: New Ciprofloxacin HCl 500 mg [Cipro 500 MG] 500 mg PO BID #20 tablet Continue Lisinopril 5 mg [Zestril 5 MG] 5 mg PO BID Tiotropium [place] [Spiriva] 18 mcg IH DAILY Meloxicam 15 mg [Meloxicam 15 MG] 15 mg PO DAILY Escitalopram Oxalate [Lexapro] 10 mg PO DAILY Diazepam 5 mg PO HS PRN PRN PRN Reason: Anxiety Discontinued Clopidogrel Bisulfate [Plavix] 75 mg PO DAILY Instructions: Use an Incentive Spirometer, Following Your Exploratory Laparotomy, Perform Postsurgical Deep Breathing and Coughing, Postoperative Pain Follow up with: DANYELLE WALLIS [ACTIVE STAFF] - 11/21/16 9:45 am () MICHELLE ALMAZAN MD [Primary Care Provider] - 11/22/16 1:45 pm JG LAINEZ [ACTIVE STAFF] - 11/21/16 2:00 pm ([facility]) Forms: Patient Portal Information
[2016-11-15 17:06] VITALS: BP 112/60; PULSE 101; O2SAT 92
== END 2016-11-15 16:10 | disposition home or self-care (01) | DRG 329 ==
LOC: ED 21:02 → MED SURG 11-07 03:43 → UNDOADMOB 11-07 03:43 → OBSVTOIN 11-07 03:43 → INTOOBSV 11-07 08:50 → OBSVTOIN 11-07 08:50
PROVIDERS: ADMIT Family Medicine; ATTEND Family Medicine
PROC: 0DU907Z Supplement Duodenum with Autologous Tissue Substitute, Open Approach (ICD-10-PCS; principal; 2016-11-07)
PROC: 0WCG0ZZ Extirpation of Matter from Peritoneal Cavity, Open Approach (ICD-10-PCS; 2016-11-07)
DX: K26.1 Acute duodenal ulcer with perforation (principal); K65.1 Peritoneal abscess; J44.1 Chronic obstructive pulmonary disease with (acute) exacerbation; R07.9 Chest pain, unspecified; I10 Essential (primary) hypertension; E87.6 Hypokalemia; I25.10 Atherosclerotic heart disease of native coronary artery without angina pectoris; E63.9 Nutritional deficiency, unspecified; F41.9 Anxiety disorder, unspecified; M19.90 Unspecified osteoarthritis, unspecified site; Z79.899 Other long term (current) drug therapy; I25.2 Old myocardial infarction; F32.4 Major depressive disorder, single episode, in partial remission; Z72.0 Tobacco use
CPT/HCPCS: 00790; 36415; 71010; 71260; 74176; 74246; 80053; 81000; 82150; 83690; 83735; 83880; 84484; 85025; 85027; 85379; 86308; 87040; 87070; 87086; 87430; 87631; 93005; 94640; 94760; 94761; 96360; 96361; 96365; 96367; 96368; 96374; 96375; 99140; 99285; J0330; J0456; J0694; J0696; J1100; J1170; J1265; J1650; J1885; J1940; J2270; J2405; J2550; J2704; J2930; J3010; J3475; J3480; L0625